=== PATIENT | female | born 1975 | race Caucasian/White ===

== ENCOUNTER → 2016-12-24 | Outpatient (CLI) | payer MEDICAID ==
[~2016-12-24] MED LIST: ALB0.5V; ALBUTEROL SULFATE; ALPR0.25 PO; ANAL2.5CR PR; ASMANEX; ASPI-587 PO; BUTA-234 PO; CEPH-38 PO; CEPH-507 PO; CMBV14.7IN IH; CYCL10TA9 PO; DICL75TA2 PO; FAMO-119 PO; HYDR1TAB PO; HYOS0.1234 PO; IPR14IN INH; IPRA0.2S18 IH; LEVE500T6 PO; LNS30CCR; METO5TAB2 PO; MOME0.244; NITR-65 PO; NITR100C3 PO; ONDA8TAB13 PO; OXYC-12; PNT40TEC PO; PREG25CA PO; PRO AIR; PROAIR; RT-COMBINH; SCR1T1 PO; SUCR1TAB36 PO; SULF1TAB38 PO; TCD12.5U PO; TRAM-21 PO; TRAM50TA2 PO; TRM50T PO; VITAMINE D; [UNRECOGNIZED DRUG - CODE] MC; [UNRECOGNIZED DRUG - OTHER]; [UNRECOGNIZED DRUG - OTHER]; [UNRECOGNIZED DRUG - REMARK]
== END ==
LOC: RAD 13:50
PROVIDERS: ATTEND Nurse Practitioner Family
DX: Z12.31 Encounter for screening mammogram for malignant neoplasm of breast (principal)
CPT/HCPCS: 77067

== ENCOUNTER → 2017-01-18 | Outpatient (CLI) | payer MEDICAID ==
[~2017-01-18] MED LIST changes: +AMIT50TA3 PO; +ARIP10TA17 PO; +CELE100C84 PO; +DOXY100C2 PO; +PANT40TA3 PO; +PRD10T PO; +PRD20T PO; +RT-ALBUINH IH; +TIOT18CA2 IH; +TOPI50TA13 PO
--- NOTE | 2017-01-18 17:29 | Diagnostic Imaging Report ---
PROCEDURE: MRI lumbar spine. TECHNIQUE: Multiplanar, multisequence MRI of the lumbar spine was performed without contrast. INDICATION: Low back pain with sciatica. COMPARISON: Lumbar spine MRI without contrast 08/15/2012. FINDINGS: There are five lumbar-type vertebral bodies presumed for the purposes of this report. Normal alignment. Vertebral body heights are maintained. Benign hemangioma in the L5 vertebral body is stable. No suspicious bone marrow signal. No abnormal signal in the conus which terminates at T12-L1. Normal morphology of the cauda equina. The visualized abdominal and pelvic contents are unremarkable. There is mild lower lumbar facet arthropathy bilaterally at L3 through S1. There are tiny broad-based disc bulges at L4-L5 and L5-S1. There is no substantial spinal canal, lateral recess, or neural foraminal narrowing throughout the lumbar spine. IMPRESSION: Mild spondylotic changes result in no neural impingement. No suspicious bone marrow signal. No significant change. Dictated by: Dictated on workstation # [id number]
== END ==
LOC: RAD 14:01
PROVIDERS: ATTEND Nurse Practitioner Family
DX: M54.41 Lumbago with sciatica, right side (principal)
CPT/HCPCS: 72148

== ENCOUNTER 2017-02-10 12:44 | Outpatient (RCR) | payer MEDICAID ==
[~2017-02-10 12:44] MED LIST changes: -AMIT50TA3 PO; -ARIP10TA17 PO; -CELE100C84 PO; -DOXY100C2 PO; -PANT40TA3 PO; -PRD10T PO; -PRD20T PO; -RT-ALBUINH IH; -TIOT18CA2 IH; -TOPI50TA13 PO
== END 2017-02-12 | disposition home or self-care (01) ==
PROVIDERS: ATTEND Nurse Practitioner Family
DX: M54.41 Lumbago with sciatica, right side (principal); G89.4 Chronic pain syndrome; M46.96 Unspecified inflammatory spondylopathy, lumbar region

== ENCOUNTER 2017-03-02 12:56 | Outpatient (RCR) | payer MEDICAID ==
[2017-03-31] MEDS ORDERED: PRD10T PO (07:56)
== END 2017-03-02 13:38 | disposition home or self-care (01) ==
PROVIDERS: ATTEND Nurse Practitioner Family
DX: M54.41 Lumbago with sciatica, right side (principal); G89.4 Chronic pain syndrome; M19.91 Primary osteoarthritis, unspecified site

== ENCOUNTER 2017-03-28 15:34 | Observation (INO) | payer MEDICAID ==
[~2017-03-28] VITALS: Ht 152.4 cm; Wt 90.8 kg
[2017-03-28] MEDS ORDERED: ONDANSETRON 4 MG/2 ML (SDV) Z0FRAN IVP PRN (16:00)
[2017-03-28] MEDS ORDERED: RT-ALBUINH IH (16:52)
[2017-03-28] MEDS ORDERED: ARIP10TA17 PO (16:52)
[2017-03-28] MEDS ORDERED: TIOT18CA2 IH (16:52)
[2017-03-28] MEDS ORDERED: CELE100C84 PO (16:52)
[2017-03-28] MEDS ORDERED: DOXY100C2 PO (16:52)
[2017-03-28] MEDS ORDERED: TOPI50TA13 PO (16:52)
[2017-03-28] MEDS ORDERED: AMIT50TA3 PO (16:52)
[2017-03-28] MEDS ORDERED: PANT40TA3 PO (16:52)
[2017-03-28] MEDS ORDERED: PRD20T PO (16:57)
[2017-03-28 16:59] VITALS: BP 117/76
[2017-03-28] MEDS: methylPREDNISolone 125 MG (Solu-MEDROL) VIAL IVP SCH ×2 (17:15→23:53)
--- OUTSIDE RECORDS SUMMARY | 2017-03-28 17:43 | XMS REPORT ---
Author Author MOOK GONZALES Organization [facility] [place] Address [address] [place] [address] Care Team Providers Care Video Game Designer Name Role Phone GONZALESMOOK Donald Unavailable PROBLEMS Type Condition ICD9-CM Code [id number] Code Onset Dates Condition Status SNOMED Code Problem Anxiety F41.9 Active 82054701 Problem Adjustment disorder with depressed mood F43.21 Active 93892972 Problem Post traumatic stress disorder F43.10 Active 88174825 Problem Chronic pain syndrome G89.4 Active 102928364 Problem Lumbago with sciatica, right side M54.41 Active 094873226 Problem Gastroesophageal reflux disease with esophagitis K21.0 Active 890303162 Problem 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 Active 14271046 Problem Arthritis M19.90 Active 2415257 Problem Mild intermittent asthma without complication J45.20 Active 579048777 Problem Spondylosis of lumbar spine M47.816 Active 676252562 Problem History of drug dependence/abuse F19.21 Active 4265856 Problem History of anxiety disorder Z86.59 Active 763903875 Problem Thrombocytosis D47.3 Active 6591274 Problem History of gestational diabetes Z86.32 Active 203976020 Problem Encounter for routine adult health examination with abnormal findings Z00.01 Active 427265960 Problem Depression with anxiety F41.8 Active 773871540 ALLERGIES No Information SOCIAL HISTORY Never Assessed PLAN OF CARE VITAL SIGNS MEDICATIONS Medication Instructions Dosage Frequency Start Date End Date Duration Status Spiriva HandiHaler 18 MCG Inhalation Once a day 1 capsule 24h September, 30 days Active RESULTS No Results PROCEDURES No Known procedures IMMUNIZATIONS No Known Immunizations MEDICAL (GENERAL) HISTORY Type Description Date Medical History COPD Medical History Asthma Medical History Depression Medical History Arthritis Medical History Anxiety Medical History PTSD Medical History Nerve damage (pt reports due to epidural during childbirth) Medical History History of gestational diabetes Medical History IBS Medical History 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
--- OUTSIDE RECORDS SUMMARY | 2017-03-28 17:43 | XMS REPORT | Clinical Summary ---
Author Author [facility] Organization [facility] Address Unknown Phone Unavailable Care Team Providers Care Retail Performance Coach Name Role Phone PCP Unavailable Source Comments Some departments are not documenting in the electronic medical record. If you do not see the information that you expected, contact Release of Information in the Health Information Management department at [phone] for further assistance in locating additional records.[facility] Allergies No Known Allergies Current Medications Prescription Sig. Disp. Refills Start End Date Status Date levETIRAcetam (KEPPRA) Take 500 mg by mouth Active 500 mg tablet twice daily. PREGABALIN (LYRICA PO) Take 40 mg by mouth at Active bedtime daily. albuterol (VENTOLIN HFA, Inhale 2 Puffs by mouth Active PROAIR HFA) 90 every 6 hours as needed. mcg/actuation inhaler ipratropium (ATROVENT Inhale 2 Puffs by mouth Active HFA) 17 mcg/actuation every 6 hours. inhaler OXYCODONE HCL (OXYCODONE Take by mouth every 4 Active PO) hours as needed. OMEPRAZOLE (PRILOSEC PO) Take by mouth daily. Active FLUOXETINE HCL (PROZAC Take by mouth daily. Active PO) metoclopramide HCl Take 2 Tabs by mouth 120 Tab 3 12/06/19 Active (REGLAN) 5 mg tablet before meals and at 13 bedtime. ondansetron (ZOFRAN ODT) Take 1 Tab by mouth every 20 Tab 3 12/06/19 Active 4 mg rapid dissolve 8 hours as needed for 13 tablet Nausea. nystatin (NYSTOP) 100,000 apply 2-3 times per day 1 Container 0 Active unit/g topical to affected areas 16 powderIndications: Intertrigo Active Problems Problem Noted Date Hypertrophy of breast 02/07/2013 Abdominal pain 2012 Nausea and vomiting 2012 Family History Relation Name Status Comments Social History Tobacco Use Types Packs/Day Years Used Date Current Every Day Smoker Cigarettes 0.5 Smokeless Tobacco: Never Used Tobacco Cessation: Ready to Quit: Yes; Counseling Given: Yes Alcohol Use Drinks/Week oz/Week Comments Yes occ Sex Assigned at Date Recorded Not on file Last Filed Vital Signs Vital Sign Reading Time Taken Blood Pressure 131/70 06/24/2015 10:12 PM WARM IN WORKER Pulse 89 06/24/2015 10:12 PM WARM IN WORKER Temperature 36.5 C (97.7 F) 06/24/2015 10:12 PM WARM IN WORKER Respiratory Rate 18 02/07/2013 12:59 PM CDT Oxygen Saturation 98% 06/25/2015 2:15 AM WARM IN WORKER Inhaled Oxygen - - Concentration Weight 90.7 kg (200 lb) 06/24/2015 10:12 PM WARM IN WORKER Height 152.4 cm (5') 02/07/2013 12:59 PM CDT Body Mass Index 39.06 06/24/2015 10:12 PM WARM IN WORKER Plan of Treatment Health Maintenance Due Date Last Done Comments PHYSICAL (COMPREHENSIVE) 09/27/1983 EXAM PERTUSSIS VACCINE 09/27/1987 TETANUS VACCINE 1993 CERVICAL CANCER SCREENING 2006 BREAST CANCER SCREENING 2016 INFLUENZA VACCINE 12/14/2016 Results Not on filefrom Last 3 Months
--- OUTSIDE RECORDS SUMMARY | 2017-03-28 17:44 | XMS REPORT ---
Author Author GONZALESMOOK Donald Organization [facility] Address [address] [place] [address] Care Team Providers Care Chick Grader Name Role Phone GONZALESMOOK Donald Unavailable PROBLEMS Type Condition ICD9-CM Code [id number] Code Onset Dates Condition Status SNOMED Code Problem Anxiety F41.9 Active 69775972 Problem Adjustment disorder with depressed mood F43.21 Active 85347113 Problem Post traumatic stress disorder F43.10 Active 89099466 Problem Chronic pain syndrome G89.4 Active 558425656 Problem Lumbago with sciatica, right side M54.41 Active 175375115 Problem Gastroesophageal reflux disease with esophagitis K21.0 Active 749103850 Problem 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 Active 86299103 Problem Arthritis M19.90 Active 6863068 Problem Mild intermittent asthma without complication J45.20 Active 600470737 Problem Spondylosis of lumbar spine M47.816 Active 808372405 Problem History of drug dependence/abuse F19.21 Active 6039719 Problem History of anxiety disorder Z86.59 Active 555337302 Problem Thrombocytosis D47.3 Active 3372186 Problem History of gestational diabetes Z86.32 Active 473048323 Problem Encounter for routine adult health examination with abnormal findings Z00.01 Active 681540208 Problem Depression with anxiety F41.8 Active 170461979 ALLERGIES No Information SOCIAL HISTORY Never Assessed PLAN OF CARE VITAL SIGNS MEDICATIONS Unknown Medications RESULTS Name Result Date Reference Range THYROID ANALYZER 2016-09-15 TSH 2.710 0.450-4.500 A1C 2016-09-15 Hemoglobin A1c 5.5 4.8-5.6 CBC 2016-09-15 WBC 7.3 3.4-10.8 RBC 4.85 3.77-5.28 Hemoglobin 13.1 11.1-15.9 Hematocrit 40.6 34.0-46.6 MCV 84 79-97 MCH 27.0 26.6-33.0 MCHC 32.3 31.5-35.7 RDW 15.9 12.3-15.4 Platelets 420 150-379 Neutrophils 48 Lymphs 41 Monocytes 8 Eos 3 Basos 0 Neutrophils (Absolute) 3.4 1.4-7.0 Lymphs (Absolute) 3.0 0.7-3.1 Monocytes(Absolute) 0.6 0.1-0.9 Eos (Absolute) 0.3 0.0-0.4 Baso (Absolute) 0.0 0.0-0.2 Immature Granulocytes 0 Immature Grans (Abs) 0.0 0.0-0.1 LIPID PANEL 2016-09-15 Cholesterol, Total 198 100-199 Triglycerides 140 0-149 HDL Cholesterol 54 >39 VLDL Cholesterol Arron 28 5-40 LDL Cholesterol Calc 116 0-99 CMP 2016-09-15 Glucose, Serum 86 65-99 BUN 10 6-20 Creatinine, Serum 0.73 0.57-1.00 eGFR If NonAfricn Am 104 >59 eGFR If Africn Am 120 >59 BUN/Creatinine Ratio 14 9-23 Sodium, Serum 141 134-144 Potassium, Serum 4.1 3.5-5.2 Chloride, Serum 100 96-106 Carbon Dioxide, Total 25 18-29 Calcium, Serum 9.4 8.7-10.2 Protein, Total, Serum 7.1 6.0-8.5 Albumin, Serum 4.2 3.5-5.5 Globulin, Total 2.9 1.5-4.5 A/G Ratio 1.4 1.2-2.2 Bilirubin, Total 0.2 0.0-1.2 Alkaline Phosphatase, S 66 39-117 AST (SGOT) 17 0-40 ALT (SGPT) 10 0-32 PROCEDURES Procedure Date Ordered Result Body Site LAB NOT BILLED BY [facility] September 15, 2016 GLYCATED HEMOGLOBIN TEST September 15, 2016 VENIPUNCT, ROUTINE* September 15, 2016 IMMUNIZATIONS No Known Immunizations MEDICAL (GENERAL) HISTORY [...] surgery Hospitalization History mental health (suicidal ideation) [facility] 2016 Hospitalization History Overdose on prescription medicine/Suicide Attempt Hospitalization History [facility]
--- OUTSIDE RECORDS SUMMARY | 2017-03-28 17:44 | XMS REPORT ---
Author Author GONZALESMOOK Donald Organization [facility] Address [address] [place] [address] Care Team Providers Care Warehouse Shipping Receiving Clerk Name Role Phone GONZALESMOOK Donald Unavailable PROBLEMS Type Condition ICD9-CM Code [id number] Code Onset Dates Condition Status SNOMED Code Problem Anxiety F41.9 Active 88642250 Problem Adjustment disorder with depressed mood F43.21 Active 64408011 Problem Post traumatic stress disorder F43.10 Active 37744527 Problem Chronic pain syndrome G89.4 Active 680651866 Problem Lumbago with sciatica, right side M54.41 Active 768944704 Problem Gastroesophageal reflux disease with esophagitis K21.0 Active 754845068 Problem 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 Active 13943675 Problem Arthritis M19.90 Active 4644211 Problem Mild intermittent asthma without complication J45.20 Active 342026393 Problem Spondylosis of lumbar spine M47.816 Active 339884513 Problem History of drug dependence/abuse F19.21 Active 4982208 Problem History of anxiety disorder Z86.59 Active 062012532 Problem Thrombocytosis D47.3 Active 7238099 Problem History of gestational diabetes Z86.32 Active 124594838 Problem Encounter for routine adult health examination with abnormal findings Z00.01 Active 917402189 Problem Depression with anxiety F41.8 Active 750026132 ALLERGIES No Information SOCIAL HISTORY Never Assessed PLAN OF CARE VITAL SIGNS MEDICATIONS Medication Instructions Dosage Frequency Start Date End Date Duration Status Protonix 40 mg Orally Once a day 1 tablet 24h 30 days Active Celebrex 100 mg Orally Once a day 1 capsule with food 24h Oct, 30 days Active Atrovent HFA 17 MCG/ACT Inhalation Four times a day 2 puffs 6h Active ProAir HFA 108 (90 Base) MCG/ACT Inhalation every 4 hrs 2 puffs as needed 4h Active RESULTS No Results PROCEDURES No Known [...] surgery Hospitalization History mental health (suicidal ideation) [facility] 2016 Hospitalization History Overdose on prescription medicine/Suicide Attempt Hospitalization History [facility]
--- OUTSIDE RECORDS SUMMARY | 2017-03-28 17:44 | XMS REPORT ---
Author Author DESTINEY NOLAN Organization [facility] Address [address] [place] [address] Care Team Providers Care Edge Inker Uppers Name Role Phone DESTINEY NOLAN Unavailable PROBLEMS Type Condition ICD9-CM Code [id number] Code Onset Dates Condition Status SNOMED Code Problem Anxiety F41.9 Active 34265280 Problem Adjustment disorder with depressed mood F43.21 Active 34053913 Problem Post traumatic stress disorder F43.10 Active 87605668 Problem Chronic pain syndrome G89.4 Active 384216533 Problem Lumbago with sciatica, right side M54.41 Active 942814244 Problem Gastroesophageal reflux disease with esophagitis K21.0 Active 369547695 Problem 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 Active 54543901 Problem Arthritis M19.90 Active 9245656 Problem Mild intermittent asthma without complication J45.20 Active 139995360 Problem Spondylosis of lumbar spine M47.816 Active 519815460 Problem History of drug dependence/abuse F19.21 Active 1490769 Problem History of anxiety disorder Z86.59 Active 204894665 Problem Thrombocytosis D47.3 Active 6998949 Problem History of gestational diabetes Z86.32 Active 689655785 Problem Encounter for routine adult health examination with abnormal findings Z00.01 Active 702067430 Problem Depression with anxiety F41.8 Active 739985516 ALLERGIES No Known Allergies SOCIAL HISTORY Never Assessed PLAN OF CARE Activity Details Follow Up prn Reason: VITAL SIGNS Height 61.5 in 2016-10-10 Weight 184.2 lbs 2016-10-10 Temperature 98.5 degrees Fahrenheit 2016-10-10 Heart Rate 84 bpm 2016-10-10 Respiratory Rate 20 2016-10-10 BMI 34.24 kg/m2 2016-10-10 Blood pressure systolic 114 mmHg 2016-10-10 Blood pressure diastolic 78 mmHg 2016-10-10 MEDICATIONS Medication Instructions Dosage Frequency Start Date End Date Duration Status Spiriva HandiHaler 18 MCG Inhalation Once a day 1 capsule 24h September, 30 days Active Topamax 50 MG Orally Twice a day 1 tablet 12h 15 Sep, 2016 30 day(s) Active Celebrex 100 mg Orally Once a day 1 capsule with food 24h Oct, 30 days Active Protonix 40 mg Orally Once a day 1 tablet 24h 30 days Active ProAir HFA 108 (90 Base) MCG/ACT Inhalation every 4 hrs 2 puffs as needed 4h Active Diflucan 100 mg Orally every other day 1 tablet September, Oct, 10 days Active Abilify 5 mg Orally Once a day 1 tablet 24h September, 30 day(s) Active RESULTS No Results PROCEDURES No Known [...] surgery Hospitalization History mental health (suicidal ideation) [facility] 2016 Hospitalization History Overdose on prescription medicine/Suicide Attempt Hospitalization History [facility]
--- OUTSIDE RECORDS SUMMARY | 2017-03-28 17:44 | XMS REPORT ---
Author Author MOOK GONZALES Organization [facility] Address [address] [place] [address] Care Team Providers Care Boiler House Inspector Name Role Phone GONZALESMOOK Donald Unavailable PROBLEMS Type Condition ICD9-CM Code [id number] Code Onset Dates Condition Status SNOMED Code Problem Anxiety F41.9 Active 68662235 Problem Adjustment disorder with depressed mood F43.21 Active 62190279 Problem Post traumatic stress disorder F43.10 Active 08452342 Problem Chronic pain syndrome G89.4 Active 582530248 Problem Lumbago with sciatica, right side M54.41 Active 726559350 Problem Gastroesophageal reflux disease with esophagitis K21.0 Active 590481088 Problem 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 Active 66587476 Problem Arthritis M19.90 Active 9566906 Problem Mild intermittent asthma without complication J45.20 Active 652764030 Problem Spondylosis of lumbar spine M47.816 Active 865146212 Problem History of drug dependence/abuse F19.21 Active 2093676 Problem History of anxiety disorder Z86.59 Active 993416833 Problem Thrombocytosis D47.3 Active 6236142 Problem History of gestational diabetes Z86.32 Active 371918462 Problem Encounter for routine adult health examination with abnormal findings Z00.01 Active 338137682 Problem Depression with anxiety F41.8 Active 400320487 ALLERGIES No Information SOCIAL HISTORY Never Assessed PLAN OF CARE VITAL SIGNS MEDICATIONS Medication Instructions Dosage Frequency Start Date End Date Duration Status Topamax 50 MG Orally Twice a day 1 tablet 12h 15 Sep, 2016 30 day(s) Active RESULTS No Results PROCEDURES [...] surgery Hospitalization History mental health (suicidal ideation) [facility] 2016 Hospitalization History Overdose on prescription medicine/Suicide Attempt Hospitalization History [facility]
--- OUTSIDE RECORDS SUMMARY | 2017-03-28 17:44 | XMS REPORT ---
Author Author MARGRET Chahal Organization [facility] Address [address] [place] [address] Care Team Providers Care Foreign Clerk Name Role Phone georgesMARGRET BRIGHT Unavailable PROBLEMS Type Condition ICD9-CM Code DCI61-CG Code Onset Dates Condition Status SNOMED Code Problem Anxiety F41.9 Active 54216354 Problem Adjustment disorder with depressed mood F43.21 Active 40206643 Problem Post traumatic stress disorder F43.10 Active 20587049 Problem Chronic pain syndrome G89.4 Active 491606670 Problem Lumbago with sciatica, right side M54.41 Active 345972037 Problem Gastroesophageal reflux disease with esophagitis K21.0 Active 868692036 Problem 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 Active 11203319 Problem Arthritis M19.90 Active 0646062 Problem Mild intermittent asthma without complication J45.20 Active 940344744 Problem Spondylosis of lumbar spine M47.816 Active 574004650 Problem History of drug dependence/abuse F19.21 Active 3437164 Problem History of anxiety disorder Z86.59 Active 651743561 Problem Thrombocytosis D47.3 Active 4691547 Problem History of gestational diabetes Z86.32 Active 564045755 Problem Encounter for routine adult health examination with abnormal findings Z00.01 Active 349677528 Problem Depression with anxiety F41.8 Active 927073628 ALLERGIES No Information SOCIAL HISTORY Never Assessed PLAN OF CARE VITAL SIGNS MEDICATIONS Unknown Medications RESULTS No Results PROCEDURES No Known procedures [...] surgery Hospitalization History mental health (suicidal ideation) [facility] 2016 Hospitalization History Overdose on prescription medicine/Suicide Attempt Hospitalization History [facility]
--- OUTSIDE RECORDS SUMMARY | 2017-03-28 17:45 | XMS REPORT ---
Author Author DAVIS DOWLING [facility] Address [address] [place] [address] Care Team Providers Care Reel Fed Printer Name Role Phone JOSEYDAVIS Unavailable PROBLEMS Type Condition ICD9-CM Code MUD19-PA Code Onset Dates Condition Status SNOMED Code Problem Anxiety F41.9 Active 40994498 Problem Adjustment disorder with depressed mood F43.21 Active 54930442 Problem Post traumatic stress disorder F43.10 Active 52550294 Problem Chronic pain syndrome G89.4 Active 053329483 Problem Lumbago with sciatica, right side M54.41 Active 246528819 Problem Gastroesophageal reflux disease with esophagitis K21.0 Active 479749722 Problem 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 Active 74079223 Problem Arthritis M19.90 Active 8567025 Problem Mild intermittent asthma without complication J45.20 Active 364308898 Problem Spondylosis of lumbar spine M47.816 Active 110523092 Problem History of drug dependence/abuse F19.21 Active 5224571 Problem History of anxiety disorder Z86.59 Active 362509893 Problem Thrombocytosis D47.3 Active 3487994 Problem History of gestational diabetes Z86.32 Active 091969869 Problem Encounter for routine adult health examination with abnormal findings Z00.01 Active 068567622 Problem Depression with anxiety F41.8 Active 500519453 ALLERGIES No Information SOCIAL HISTORY Never Assessed PLAN OF CARE Activity Details Follow Up 3 Weeks Reason:PTSD, anxiety, substance abuse/dependance VITAL SIGNS MEDICATIONS Unknown Medications RESULTS No Results PROCEDURES Procedure Date Ordered Result Body Site Psychotherapy, patient &/family, 30 minutes, established patient September 23, 2016 IMMUNIZATIONS No Known Immunizations MEDICAL (GENERAL) [...] surgery Hospitalization History mental health (suicidal ideation) [facility] 2016 Hospitalization History Overdose on prescription medicine/Suicide Attempt Hospitalization History [facility]
--- OUTSIDE RECORDS SUMMARY | 2017-03-28 17:45 | XMS REPORT ---
Author Author DAVIS DOWLING [facility] Address [address] [place] [address] Care Team Providers Care Starch And Prosize Mixer Name Role Phone JOSEYDAVIS Unavailable PROBLEMS Type Condition ICD9-CM Code HUQ83-[id number] Code Onset Dates Condition Status SNOMED Code Problem Anxiety F41.9 Active 95879092 Problem Adjustment disorder with depressed mood F43.21 Active 41797679 Problem Post traumatic stress disorder F43.10 Active 08196247 Problem Chronic pain syndrome G89.4 Active 999509606 Problem Lumbago with sciatica, right side M54.41 Active 219964035 Problem Gastroesophageal reflux disease with esophagitis K21.0 Active 855875235 Problem 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 Active 44141435 Problem Arthritis M19.90 Active 9618679 Problem Mild intermittent asthma without complication J45.20 Active 798759658 Problem Spondylosis of lumbar spine M47.816 Active 635195633 Problem History of drug dependence/abuse F19.21 Active 2905771 Problem History of anxiety disorder Z86.59 Active 134444506 Problem Thrombocytosis D47.3 Active 7786506 Problem History of gestational diabetes Z86.32 Active 961802693 Problem Encounter for routine adult health examination with abnormal findings Z00.01 Active 662054201 Problem Depression with anxiety F41.8 Active 855282174 ALLERGIES No Information SOCIAL HISTORY Never Assessed PLAN OF CARE Activity Details Follow Up 2 Weeks Reason:Anxiety, PTSD VITAL SIGNS MEDICATIONS Unknown Medications RESULTS No Results PROCEDURES Procedure Date Ordered Result Body Site Psychotherapy, patient &/family, 30 minutes, established patient October 08, 2016 IMMUNIZATIONS No Known Immunizations MEDICAL (GENERAL) [...] surgery Hospitalization History mental health (suicidal ideation) [facility] 2016 Hospitalization History Overdose on prescription medicine/Suicide Attempt Hospitalization History [facility]
[2017-03-28 17:58] LABS: BASOPHILS % (AUTO) 0 % (0-10); EOSINOPHILS % (AUTO) 0 % (0-10); LYMPHOCYTES # (AUTO) 2.5 X 10^3 (1.0-4.0); LYMPHOCYTES % (AUTO) 16 % (12-44); MEAN CORPUSCULAR HEMOGLOBIN 28 PG (25-34); MEAN CORPUSCULAR HGB CONC 33 G/DL (32-36); MEAN CORPUSCULAR VOLUME 85 FL (80-99); MEAN PLATELET VOLUME 9.7 FL (7.4-10.4); MONOCYTES # (AUTO) 1.1 X 10^3 (0.0-1.0); MONOCYTES % (AUTO) 7 % (0-12); NEUTROPHILS % (AUTO) 77 % (42-75); PLATELET COUNT 447 10^3/uL (130-400); RED BLOOD COUNT 4.15 10^6/uL (4.35-5.85); RED CELL DISTRIBUTION WIDTH 16.1 % (10.0-14.5); WHITE BLOOD COUNT 15.6 10^3/uL (4.3-11.0)
[2017-03-28 18:15] LABS: CARBON DIOXIDE 23 MMOL/L (21-32); CHLORIDE 108 MMOL/L (98-107); POTASSIUM 3.8 MMOL/L (3.6-5.0); SODIUM 141 MMOL/L (135-145)
[2017-03-28 18:16] LABS: ALANINE AMINOTRANSFERASE 35 U/L (0-55); ALBUMIN 3.9 GM/DL (3.2-4.5); ANION GAP 10 MMOL/L (5-14); ASPARTATE AMINO TRANSFERASE 27 U/L (5-34); BILIRUBIN,TOTAL 0.2 MG/DL (0.1-1.0); BLOOD UREA NITROGEN 28 MG/DL (7-18); BUN/CREATININE RATIO 30; CALCIUM 9.4 MG/DL (8.5-10.1); CREATININE SERUM 0.94 MG/DL (0.60-1.30); GFR ESTIMATED > 60; GLUCOSE 102 MG/DL (70-105); TOTAL PROTEIN 7.4 GM/DL (6.4-8.2)
[2017-03-28 18:19] LABS: BAND NEUTROPHILS 1 %; BASOPHILS % (MANUAL) 0 %; EOSINOPHILS % (MANUAL) 0 %; LYMPHOCYTES % (MANUAL) 21 %; NEUTROPHILS % (MANUAL) 76 %
--- NOTE | 2017-03-28 18:38 | Diagnostic Imaging Report ---
CHEST PA/LAT (2 VIEW) Indication: Wheezing Comparison: 10/18/2014 Findings: No focal pneumonic consolidation, pleural effusion or pneumothorax. Normal heart size and pulmonary vasculature. Impression: No acute cardiopulmonary process. Dictated by: Dictated on workstation # [id number]
[2017-03-28 18:57] VITALS: BP 117/76
[2017-03-28] MEDS ORDERED: RT-ALBUTEROL SULF 2.5 MG/3 ML PRE-MIX VIAL IH PRN (19:15)
[2017-03-28] MEDS ORDERED: NON-FORMULARY MEDICATION 1 EA EA (Topiramate 50 MG) PO SCH (21:00)
[2017-03-28] MEDS: AMITRIPTYLINE 50 MG (ELAVIL) TAB PO SCH (21:39)
[2017-03-28] MEDS: RT-ALBUTEROL SULF 2.5 MG/3 ML PRE-MIX VIAL IH SCH (22:04)
[2017-03-29 00:09] VITALS: BP 104/66
[2017-03-29] MEDS: RT-ALBUTEROL SULF 2.5 MG/3 ML PRE-MIX VIAL IH SCH ×6 (02:25→22:14)
[2017-03-29 04:00] VITALS: BP 127/61
[2017-03-29] MEDS: methylPREDNISolone 125 MG (Solu-MEDROL) VIAL IVP SCH ×3 (06:14→17:01)
[2017-03-29] MEDS: UMECLIDINIUM BROMIDE (INCRUSE ELLIPTA) 7'S IH SCH (06:38)
[2017-03-29 06:50] LABS: BASOPHILS % (AUTO) 0 % (0-10); EOSINOPHILS % (AUTO) 0 % (0-10); LYMPHOCYTES # (AUTO) 1.2 X 10^3 (1.0-4.0); LYMPHOCYTES % (AUTO) 10 % (12-44); MEAN CORPUSCULAR HEMOGLOBIN 28 PG (25-34); MEAN CORPUSCULAR HGB CONC 33 G/DL (32-36); MEAN CORPUSCULAR VOLUME 84 FL (80-99); MEAN PLATELET VOLUME 9.8 FL (7.4-10.4); MONOCYTES # (AUTO) 0.3 X 10^3 (0.0-1.0); MONOCYTES % (AUTO) 3 % (0-12); NEUTROPHILS # (AUTO) 10.3 X 10^3 (1.8-7.8); NEUTROPHILS % (AUTO) 87 % (42-75); PLATELET COUNT 464 10^3/uL (130-400); RED BLOOD COUNT 3.95 10^6/uL (4.35-5.85); RED CELL DISTRIBUTION WIDTH 16.2 % (10.0-14.5); WHITE BLOOD COUNT 11.8 10^3/uL (4.3-11.0)
[2017-03-29 08:03] VITALS: BP 109/68
[2017-03-29] MEDS: PANTOPRAZOLE 40 MG (PROTONIX) TAB PO SCH (08:14)
[2017-03-29] MEDS: DOCUSATE SODIUM 100 MG (COLACE) CAP PO PRN (08:14)
[2017-03-29] MEDS: ARIPIPRAZOLE 10 MG (ABILIFY) TAB PO SCH (08:14)
[2017-03-29] MEDS: toPIRamate 25 MG (TOPAMAX) TAB PO SCH ×2 (08:15→21:12)
[2017-03-29] MEDS: CELECOXIB 100 MG (CeleBREX) CAP PO SCH (08:15)
[2017-03-29 12:18] VITALS: BP 113/74
--- NOTE | 2017-03-29 14:29 | History & Physicial (CHS) ---
HPI History of Present Illness: 41 yo female with history of COPD/asthma was sent to hospital from clinic due to desaturations and wheezing in spite of outpatient treatment. Zara states about a week ago her daughter got sick and then Zara got sick with on and off fever, nasal congestion, sore throat and productive cough and voice loss. She has had increasing shortness of breath in spite of using inhaler and was short of breath even trying to roll over in bed. Source: patient Date seen by provider: Mar 29, 2017 Time Seen by Provider: 10:15 Attending Physician Elia Hewitt MD PCP Anny Alicia DO Consult Date of Admission Mar 28, 2017 at 4:15 pm Home Medications Home Medications Reviewed patient Home Medication Reconciliation Form Allergies Coded Allergies: No Known Drug Allergies (Unverified , 09/07/08) MHQ-Jmsaze-Xbkims Hx Patient Social History Alcohol Use: Denies Use Recreational Drug Use: No (HX OF METH USES QUIT ONE YR AGO) Smoking Status: Current Everyday Smoker Type Used: Cigars Recent Foreign Travel: No Contact w/other who traveled: No Recent Hopitalizations: No Recent Infectious Disease Expo: No Physical Abuse Screen: No Sexual Abuse: No Immunizations Up To Date Tetanus Booster (TDap): Unknown Date of Influenza Vaccine: Jan 14, 2017 Past Medical History PMHx: Asthma/COPD GERD Anxiety Arthritis Substance abuse PSurgHx: BTL Ovarian cyst removal C section Cholecystectomy Appendectomy Hiatal hernia repair Family Medical History Significant Family History: Heart Disease, Other Conditions/Hx (Father with Parkinson disease) Review of Systems (CHC) Constitutional: fever, malaise EENTM: nose congestion Respiratory: cough, short of breath Cardiovascular: No chest pain Gastrointestinal: No abdominal pain, No diarrhea, No vomiting Genitourinary: no symptoms reported Musculoskeletal: back pain Psychiatric/Neurological: No Symptoms Reported Reviewed Test Results Reviewed Test Results Lab Laboratory Tests Test 03/28/17 17:52 03/29/17 06:06 Range/Units White Blood Count 15.6 H 11.8 H 4.3-11.0 10^3/uL Red Blood Count 4.15 L 3.95 L 4.35-5.85 10^6/uL Hemoglobin 11.5 11.0 L 11.5-16.0 G/DL Hematocrit 35 33 L 35-52 % Mean Corpuscular Volume 85 84 80-99 FL Mean Corpuscular Hemoglobin 28 28 25-34 PG Mean Corpuscular Hemoglobin Concent 33 33 32-36 G/DL Red Cell Distribution Width 16.1 H 16.2 H 10.0-14.5 % Platelet Count 447 H 464 H 130-400 10^3/uL Mean Platelet Volume 9.7 9.8 7.4-10.4 FL Neutrophils (%) (Auto) 77 H 87 H 42-75 % Lymphocytes (%) (Auto) 16 10 L 12-44 % Monocytes (%) (Auto) 7 3 0-12 % Eosinophils (%) (Auto) 0 0 0-10 % Basophils (%) (Auto) 0 0 0-10 % Neutrophils # (Auto) 12.0 H 10.3 H 1.8-7.8 X 10^3 Lymphocytes # (Auto) 2.5 1.2 1.0-4.0 X 10^3 Monocytes # (Auto) 1.1 H 0.3 0.0-1.0 X 10^3 Eosinophils # (Auto) 0.0 0.0 0.0-0.3 10^3/uL Basophils # (Auto) 0.0 0.0 0.0-0.1 10^3/uL Neutrophils % (Manual) 76 % Lymphocytes % (Manual) 21 % Monocytes % (Manual) 2 % Eosinophils % (Manual) 0 % Basophils % (Manual) 0 % Band Neutrophils 1 % Blood Morphology Comment NORMAL Sodium Level 141 135-145 MMOL/L Potassium Level 3.8 3.6-5.0 MMOL/L Chloride Level 108 H 98-107 MMOL/L Carbon Dioxide Level 23 21-32 MMOL/L Anion Gap 10 5-14 MMOL/L Blood Urea Nitrogen 28 H 7-18 MG/DL Creatinine 0.94 0.60-1.30 MG/DL Estimat Glomerular Filtration Rate > 60 BUN/Creatinine Ratio 30 Glucose Level 102 70-105 MG/DL Calcium Level 9.4 8.5-10.1 MG/DL Total Bilirubin 0.2 0.1-1.0 MG/DL Aspartate Amino Transf (AST/SGOT) 27 5-34 U/L Alanine Aminotransferase (ALT/SGPT) 35 0-55 U/L Alkaline Phosphatase 85 40-136 U/L Total Protein 7.4 6.4-8.2 GM/DL Albumin 3.9 3.2-4.5 GM/DL Radiology CXR 03/28/17: No acute cardiopulmonary process Physical Exam-(CHC) Physical Exam Vital Signs VS - Last 72 Hours, by Label 03/28/17 03/28/17 03/28/17 03/28/17 16:59 17:33 18:57 19:07 Temp 97.5 Pulse 75 71 Resp 22 B/P (MAP) 117/76 Pulse Ox 95 95 92 92 O2 Delivery Room Air Room Air Room Air FiO2 21 03/28/17 03/28/17 03/29/17 03/29/17 21:00 22:04 00:09 02:25 Temp 99.1 Pulse 73 Resp 18 B/P (MAP) 104/66 Pulse Ox 88 93 92 O2 Delivery Nasal Cannula Room Air Nasal Cannula Nasal Cannula O2 Flow Rate 2.00 2.50 2.50 03/29/17 03/29/17 03/29/17 03/29/17 04:00 06:39 08:03 09:00 Temp 97.4 96.8 Pulse 77 75 Resp 20 18 B/P (MAP) 127/61 109/68 Pulse Ox 98 93 96 O2 Delivery Nasal Cannula Nasal Cannula Nasal Cannula Nasal Cannula O2 Flow Rate 2.00 2.50 2.50 2.00 03/29/17 03/29/17 03/29/17 09:58 12:18 14:12 Temp 98.4 Pulse 83 Resp 22 B/P (MAP) 113/74 Pulse Ox 94 95 93 O2 Delivery Nasal Cannula Nasal Cannula Nasal Cannula O2 Flow Rate 2.50 2.50 2.50 Capillary Refill : General Appearance: no apparent distress HEENT: other (initially with whispering voice, began speaking in nearly normal voice by end of interview) Respiratory: decreased breath sounds, No rales, No rhonchi Cardiovascular: regular rate, rhythm, no murmur Gastrointestinal: normal bowel sounds, non tender, soft Extremities: no pedal edema Neurologic/Psychiatric: alert, normal mood/affect Skin: normal color, warm/dry Clinical Quality Measures DVT/VTE Risk/Contraindication: Risk Factor Score Per Nursin RFS Level Per Nursing on Admit: 3=High Copy Copies To 1: Biju Carrero APRN Assessment/Plan Assessment/Plan Admission Dx COPD exacerbation Viral upper respiratory infection Plan COPD exacerbation -CXR without evidence of pneumonia and suspect viral infection as source of worsening given her laryngitis, nasal congestion and sore throat. Leukocytosis and thrombocytosis present but afebrile. -IV solumedrol, RT MAT procol, wean oxygen as tolerated, change to oral steroids tomorrow -Encouraged smoking cessation Viral URI - supportive care DVT ppx- SCDs, enoxaparin ELIA HEWITT MD Mar 29, 2017 2:29 pm
[2017-03-29 16:00] VITALS: BP 116/55
[2017-03-29] MEDS: ENOXAPARIN 40 MG/0.4 ML (LOVENOX) SYR SC SCH (17:01)
[2017-03-29 19:57] VITALS: BP 118/58
[2017-03-29] MEDS: AMITRIPTYLINE 50 MG (ELAVIL) TAB PO SCH (21:11)
[2017-03-30] VITALS (7 sets, daily range): BP systolic 108–132; BP diastolic 56–70
[2017-03-30] MEDS: methylPREDNISolone 125 MG (Solu-MEDROL) VIAL IVP SCH ×3 (00:53→11:02)
[2017-03-30] MEDS: RT-ALBUTEROL SULF 2.5 MG/3 ML PRE-MIX VIAL IH SCH ×6 (02:26→22:35)
[2017-03-30 06:48] LABS: BASOPHILS % (AUTO) 0 % (0-10); EOSINOPHILS % (AUTO) 0 % (0-10); LYMPHOCYTES # (AUTO) 1.3 X 10^3 (1.0-4.0); LYMPHOCYTES % (AUTO) 7 % (12-44); MEAN CORPUSCULAR HEMOGLOBIN 27 PG (25-34); MEAN CORPUSCULAR HGB CONC 32 G/DL (32-36); MEAN CORPUSCULAR VOLUME 85 FL (80-99); MEAN PLATELET VOLUME 10.1 FL (7.4-10.4); MONOCYTES # (AUTO) 0.9 X 10^3 (0.0-1.0); MONOCYTES % (AUTO) 5 % (0-12); NEUTROPHILS % (AUTO) 88 % (42-75); PLATELET COUNT 435 10^3/uL (130-400); RED BLOOD COUNT 3.93 10^6/uL (4.35-5.85); RED CELL DISTRIBUTION WIDTH 16.3 % (10.0-14.5); WHITE BLOOD COUNT 17.1 10^3/uL (4.3-11.0)
[2017-03-30] MEDS: UMECLIDINIUM BROMIDE (INCRUSE ELLIPTA) 7'S IH SCH (06:48)
[2017-03-30] MEDS: CELECOXIB 100 MG (CeleBREX) CAP PO SCH (08:35)
[2017-03-30] MEDS: PANTOPRAZOLE 40 MG (PROTONIX) TAB PO SCH (08:35)
[2017-03-30] MEDS: DOCUSATE SODIUM 100 MG (COLACE) CAP PO PRN ×2 (08:35→20:46)
[2017-03-30] MEDS: ARIPIPRAZOLE 10 MG (ABILIFY) TAB PO SCH (08:35)
[2017-03-30] MEDS: toPIRamate 25 MG (TOPAMAX) TAB PO SCH ×2 (08:35→20:42)
--- NOTE | 2017-03-30 14:41 | Progress Note (SOAP) ---
Subjective Subjective/Events-last exam Afebrile, no acute events. She is sitting up in chair, but states she is still getting short of breath with activity. Still using 2.5 lpm supplemental oxygen. She is speaking in a whispering voice, but nurse reports at times she has normal voice as well. Review of Systems Date Seen by Provider: Mar 30, 2017 Time Seen by Provider: 10:58 Objective Exam Last Set of Vital Signs Vital Signs Date Time Temp Pulse Resp B/P (MAP) Pulse Ox O2 Delivery O2 Flow Rate FiO2 03/30/17 12:00 96.8 83 20 116/70 97 Nasal Cannula 2.50 03/28/17 18:57 21 Capillary Refill : I&O Intake and Output 03/31/17 00:00 Intake Total 100 ml Output Total 350 ml Balance -250 ml Intake Oral 100 ml Output Urine Total 350 ml General: Alert, No Acute Distress Lungs: Normal Air Movement, Other (ronchi at bases) Psych/Mental Status: Mental Status NL Results/Procedures Lab Laboratory Tests 03/30/17 05:25: White Blood Count 17.1H, Red Blood Count 3.93L, Hemoglobin 10.7L, Hematocrit 33L , Mean Corpuscular Volume 85, Mean Corpuscular Hemoglobin 27, Mean Corpuscular Hemoglobin Concent 32, Red Cell Distribution Width 16.3H, Platelet Count 435H, Mean Platelet Volume 10.1, Neutrophils (%) (Auto) 88H, Lymphocytes (%) (Auto) 7L , Monocytes (%) (Auto) 5, Eosinophils (%) (Auto) 0, Basophils (%) (Auto) 0, Neutrophils # (Auto) 15.0H, Lymphocytes # (Auto) 1.3, Monocytes # (Auto) 0.9, Eosinophils # (Auto) 0.0, Basophils # (Auto) 0.0 Radiology CXR 03/28/17: No acute cardiopulmonary process Assessment/Plan Assessment/Plan Plan COPD exacerbation -CXR without evidence of pneumonia and suspect viral infection as source of worsening given her laryngitis, nasal congestion and sore throat. Leukocytosis and thrombocytosis present but afebrile. -IV solumedrol, RT MAT procol, wean oxygen as tolerated, change to oral steroids tomorrow -Encouraged smoking cessation 03/30- change to PO prednisone taper, wean oxygen Viral URI - supportive care DVT ppx- SCDs, enoxaparin Clinical Quality Measures DVT/VTE Risk/Contraindication: Risk Factor Score Per Nursin RFS Level Per Nursing on Admit: 3=High ELIA CASTLE MD Mar 30, 2017 14:41
[2017-03-30] MEDS: ENOXAPARIN 40 MG/0.4 ML (LOVENOX) SYR SC SCH (15:26)
[2017-03-30] MEDS: predniSONE 10 MG TAB PO SCH (15:26)
[2017-03-30] MEDS: AMITRIPTYLINE 50 MG (ELAVIL) TAB PO SCH (20:42)
[2017-03-31] MEDS: RT-ALBUTEROL SULF 2.5 MG/3 ML PRE-MIX VIAL IH SCH ×2 (02:44→07:02)
[2017-03-31 03:57] VITALS: BP 104/68
[2017-03-31 03:58] VITALS: BP 146/95
[2017-03-31] MEDS: UMECLIDINIUM BROMIDE (INCRUSE ELLIPTA) 7'S IH SCH (07:02)
[2017-03-31 07:14] LABS: BASOPHILS % (AUTO) 0 % (0-10); EOSINOPHILS % (AUTO) 0 % (0-10); LYMPHOCYTES # (AUTO) 2.8 X 10^3 (1.0-4.0); LYMPHOCYTES % (AUTO) 16 % (12-44); MEAN CORPUSCULAR HEMOGLOBIN 28 PG (25-34); MEAN CORPUSCULAR HGB CONC 33 G/DL (32-36); MEAN CORPUSCULAR VOLUME 85 FL (80-99); MEAN PLATELET VOLUME 9.8 FL (7.4-10.4); MONOCYTES # (AUTO) 1.3 X 10^3 (0.0-1.0); MONOCYTES % (AUTO) 7 % (0-12); NEUTROPHILS # (AUTO) 13.8 X 10^3 (1.8-7.8); NEUTROPHILS % (AUTO) 77 % (42-75); PLATELET COUNT 444 10^3/uL (130-400); RED BLOOD COUNT 4.05 10^6/uL (4.35-5.85); RED CELL DISTRIBUTION WIDTH 16.6 % (10.0-14.5); WHITE BLOOD COUNT 17.9 10^3/uL (4.3-11.0)
[2017-03-31 07:52] LABS: LYMPHOCYTES % (MANUAL) 19 %; NEUTROPHILS % (MANUAL) 72 %
[2017-03-31] MEDS: toPIRamate 25 MG (TOPAMAX) TAB PO SCH (07:56)
[2017-03-31] MEDS ORDERED: PRD10T PO (07:56)
[2017-03-31] MEDS: PANTOPRAZOLE 40 MG (PROTONIX) TAB PO SCH (07:56)
[2017-03-31] MEDS: CELECOXIB 100 MG (CeleBREX) CAP PO SCH (07:56)
[2017-03-31] MEDS: ARIPIPRAZOLE 10 MG (ABILIFY) TAB PO SCH (07:56)
[2017-03-31] MEDS: DOCUSATE SODIUM 100 MG (COLACE) CAP PO PRN (07:56)
[2017-03-31] MEDS: predniSONE 10 MG TAB PO SCH (07:57)
[2017-03-31 08:00] VITALS: BP 111/74
--- NOTE | 2017-03-31 09:36 | Discharge Instructions ---
Discharge [facility] Discharge Medications New, Converted or Re-Newed RX: Transmitted to Pharmacy New Medications: Prednisone (Prednisone) 10 Mg Tab 0 PO UD, #15 TAB 0 Refills Take 6 tabs (60mg) daily, decrease by 1 tab (10mg) daily. Continued Medications: Albuterol Sulfate (Proair Hfa) 1 Puff Puff 2 PUFF IH Q4H PRN for SHORTNESS OF BREATH Amitriptyline HCl (Amitriptyline HCl) 50 Mg Tablet 50 MG PO HS Aripiprazole (Aripiprazole) 10 Mg Tablet 10 MG PO DAILY Celecoxib (Celecoxib) 100 Mg Capsule 100 MG PO DAILY Pantoprazole Sodium (Pantoprazole Sodium) 40 Mg Tablet.dr 40 MG PO DAILY Tiotropium [place] (Spiriva) 1 Inh Aerp 1 CAP IH DAILY Topiramate (Topiramate) 50 Mg Tablet 50 MG PO BID Discontinued Medications: Doxycycline Hyclate (Doxycycline Hyclate) 100 Mg Capsule 100 MG PO Q12H FILLED 03/26/17 #20 FOR A 10 DAY THERAPY Prednisone (Prednisone) 20 Mg Tab 40 MG PO DAILY TAKES 2 (20 MG) TABLETS / FILLED 03/26/17 #10 FOR A 5 DAY THERAPY Patient Instructions Goal/Follow Up Appt: Follow up with Biju Carrero APRN on 04/08 at 1:40 pm. Return to The Hospital For: Fever, difficulty breathing Activity & Diet Discharge Diet: Regular Diet Activity as Tolerated: Yes Orders-Post D/C & Referrals Pneu Vac Indicated: Yes ELIA CASTLE MD Mar 31, 2017 7:59 am
--- NOTE | 2017-03-31 09:37 | Discharge Summary ---
Diagnosis/Chief Complaint Date of Admission Mar 28, 2017 at 4:45 pm Date of Discharge Mar 31, 2017 Admission Diagnosis Admission Diagnosis COPD exacerbation Viral upper respiratory infection Discharge Diagnosis COPD exacerbation -CXR without evidence of pneumonia and suspect viral infection as source of worsening given her laryngitis, nasal congestion and sore throat. Leukocytosis and thrombocytosis present but afebrile. -IV solumedrol, RT MAT procol, wean oxygen as tolerated, change to oral steroids tomorrow -Encouraged smoking cessation 03/30- changed to PO prednisone taper, wean oxygen 03/31 stable on room air, discharged with prednisone taper Viral URI - supportive care Chief Complaint/HPI Chief Complaint/HPI 41 yo female with history of COPD/asthma was sent to hospital from clinic due to desaturations and wheezing in spite of outpatient treatment. Zara states about a week ago her daughter got sick and then Zara got sick with on and off fever, nasal congestion, sore throat and productive cough and voice loss. She has had increasing shortness of breath in spite of using inhaler and was short of breath even trying to roll over in bed. Discharge Summary-Simple/Stand Consultations Discharge Physical Examination Allergies: Coded Allergies: No Known Drug Allergies (Unverified , 09/07/08) Vitals & I&Os Vital Sign - Last 12Hours Date Time Temp Pulse Resp B/P (MAP) Pulse Ox O2 Delivery O2 Flow Rate FiO2 03/31/17 08:00 98 Room Air 03/31/17 08:00 99.2 79 20 111/74 03/30/17 22:36 1.00 03/28/17 18:57 21 General Appearance: Alert, No Acute Distress Respiratory: Clear to Auscultation, Normal Air Movement Cardiovascular: Regular Rate, No Murmurs Neuro: Normal Gait, Normal Speech Hospital Course See final discharge diagnosis. Radiology Reviewed CXR 03/28/17: No acute cardiopulmonary process Discharge Instructions to patient/family Please see electronic discharge instructions given to patient. Discharge Medications Reviewed and agree with Discharge Medication list on patient's Discharge Instruction sheet Clinical Quality Measures DVT/VTE Risk/Contraindication: Risk Factor Score Per Nursin RFS Level Per Nursing on Admit: 3=High Copy Copies To 1: JEREMIE Mar BETHANY N MD Mar 31, 2017 09:37
[2017-03-31 10:00] VITALS: BP 111/74
== END 2017-03-31 09:12 | disposition home or self-care (01) ==
LOC: UNDOADMOB 16:15 → 4TH 16:15
PROVIDERS: ADMIT Family Medicine; ATTEND Family Medicine
DX: J44.1 Chronic obstructive pulmonary disease with (acute) exacerbation (principal); J06.9 Acute upper respiratory infection, unspecified; K21.9 Gastro-esophageal reflux disease without esophagitis; F41.9 Anxiety disorder, unspecified; F17.210 Nicotine dependence, cigarettes, uncomplicated; J45.909 Unspecified asthma, uncomplicated
CPT/HCPCS: 36415; 71020; 80053; 85007; 85025; 85027; 94640; 94664; 94760

== ENCOUNTER → 2018-03-01 | Outpatient (CLI) | payer MEDICAID ==
[~2018-03-01] MED LIST changes: +AMIT50TA3 PO; +ARIP10TA17 PO; +CELE100C84 PO; +DOXY100C2 PO; +PANT40TA3 PO; +PRD10T PO; +PRD20T PO; +RT-ALBUINH IH; +TIOT18CA2 IH; +TOPI50TA13 PO
--- NOTE | 2018-03-01 14:05 | Diagnostic Imaging Report ---
INDICATION: Palpable fullness in the lower inner left breast. COMPARISON: 12/24/2016 and 09/11/2013. TECHNIQUE: 2D and 3D bilateral diagnostic mammography was performed with CAD. FINDINGS: Scattered fibroglandular densities are identified bilaterally. There are benign calcifications bilaterally. No mass or malignant appearing microcalcifications are seen. The axillae are unremarkable. IMPRESSION: No mammographic features suspicious for malignancy are identified. Even so, directed sonographic interrogation of the area of fullness in the lower inner left breast is recommended and will be performed today. ACR BI-RADS Category 0: Incomplete. (Needs additional imaging evaluation). Result letter will be mailed to the patient. Note: At least 10% of breast cancer is not imaged by mammography. Dictated by: Dictated on workstation # [id number]
--- NOTE | 2018-03-01 14:14 | Diagnostic Imaging Report ---
INDICATION: Palpable abnormality in the left breast. Focused ultrasonography is performed from 6 to 9 o'clock positions in the left breast without evidence of underlying cystic or solid lesion. There is no architectural distortion or evidence of shadowing mass. IMPRESSION: Category one, negative left breast ultrasound. There is no ultrasound evidence of lesion associated with patient's palpable abnormality although mammographic correlation and physical exam follow up would be of use. Possible biopsy should be based on level of clinical suspicion. Dictated by: Dictated on workstation # [id number]
== END ==
LOC: RAD 12:11
PROVIDERS: ATTEND Nurse Practitioner Family
DX: N64.59 Other signs and symptoms in breast (principal)
CPT/HCPCS: 76642; 77066

== ENCOUNTER 2018-04-29 19:24 | Emergency (ER) | payer MEDICAID ==
[~2018-04-29] VITALS: Ht 152.4 cm; Wt 90.8 kg
[2018-04-29] MEDS ORDERED: LACTATED RINGERS 1,000 ML IV ONE (19:31)
[2018-04-29] MEDS ORDERED: UMEC62.5 (19:38)
[2018-04-29] MEDS ORDERED: HYDR-700 (19:38)
[2018-04-29] MEDS ORDERED: PRIM250T (19:38)
--- NOTE | 2018-04-29 19:39 | ED General ---
General Chief Complaint: General Problems/Pain Stated Complaint: COLLAPSED GOING TO BATHROOM,WEAK,WALKING SLOW Source of Information: Patient Exam Limitations: No Limitations History of Present Illness Date Seen by Provider: Apr 29, 2018 Time Seen by Provider: 19:37 Initial Comments Ambulatory to the emergency room with reports of having collapsed last night while going to the bathroom. She was evaluated at [facility] and told she likely had some sort of a virus. The weakness that she had last night persisted into today. She states that she feels weak all over and cannot further elaborate on her symptoms. She denies shortness of breath cough sore throat and fevers chills nausea vomiting diarrhea. She just feels weak. she did not hit her head when she fell Timing/Duration: 1-2 Days Severity: Moderate Associated Systoms: Weakness Allergies and Home Medications Allergies Coded Allergies: No Known Drug Allergies (Unverified , 09/07/08) Home Medications Albuterol Sulfate 1 Puff Puff, 2 PUFF IH Q4H PRN for SHORTNESS OF BREATH, ( Reported) Amitriptyline HCl 50 Mg Tablet, 50 MG PO HS, (Reported) Aripiprazole 10 Mg Tablet, 10 MG PO DAILY, (Reported) Bacitracin 28.4 Gm Oint...g., 1 GM TP BID mix with nystatin cream and apply beneath left breast twice daily. Prescribed by: GRANT HANSEN on 04/29/182052 Celecoxib 100 Mg Capsule, 100 MG PO DAILY, (Reported) Nystatin 15 Gm Cream..g., 1 GM TP TID Prescribed by: GRANT HANSEN on 04/29/182052 Pantoprazole Sodium 40 Mg Tablet.dr, 40 MG PO DAILY, (Reported) Prednisone 20 Mg Tab, 40 MG PO DAILY Prescribed by: GRANT HANSEN on 04/29/182052 Tiotropium [place] 1 Inh Aerp, 1 CAP IH DAILY, (Reported) Topiramate 50 Mg Tablet, 50 MG PO BID, (Reported) Patient Home Medication List Home Medication List Reviewed: Yes Review of Systems Review of Systems Constitutional: see HPI EENTM: see HPI Respiratory: no symptoms reported Cardiovascular: no symptoms reported Genitourinary: no symptoms reported Musculoskeletal: no symptoms reported Skin: no symptoms reported Psychiatric/Neurological: No Symptoms Reported Hematologic/Lymphatic: No Symptoms Reported Past Pxfomnd-Vwgfal-Irrwjj Hx Patient Social History Type Used: Cigars Recent Foreign Travel: No Contact w/Someone Who Travel: No Recent Hopitalizations: No Immunizations Up To Date Tetanus Booster (TDap): Unknown PED Vaccines UTD: Yes Date of Influenza Vaccine: Jan 14, 2017 Seasonal Allergies Seasonal Allergies: Yes Past Medical History Surgeries: Yes (LORI; ; TUBAL LIGATION; OVARIAN CYST; APPENDECTOMY; HILTON FUDOPL) Appendectomy, Section, Gallbladder, Tubal Ligation Respiratory: Yes (ASTHMA) Asthma Cardiac: No Syncope Neurological: Yes (SYNCOPE) Headaches /Migraines, Seizure Disorder Female Reproductive Disorders: Menstrual Problems, Ovarian Cyst Sexually Transmitted Disease: Yes (HERPES) Gastrointestinal: Yes (IBS) Gastroesophageal Reflux, Gall Bladder Disease, Irritable Bowel Musculoskeletal: No Arthritis, Fractures Endocrine: No Cancer: No Skin Psychosocial: Yes Sleep Difficulties, Anxiety, Suicide Attempts, Bipolar, Violent Behavior, Depression Integumentary: Yes (skin cancer) Herpes Blood Disorders: No Adverse Reaction/Blood Tranf: Yes (PAIN IN ARM , FEVER) Family Medical History Cardiovascular disease 19 MOTHER FH: arrhythmia 19 MOTHER FH: skin cancer 19 MOTHER Parkinson's disease 19 FATHER Heart Disease, Other Conditions/Hx Physical Exam Vital Signs Vital Signs - First Documented 04/29/18 19:30 Temp 99.6 Pulse 100 Resp 16 B/P (MAP) 121/64 (83) Pulse Ox 99 O2 Delivery Room Air Capillary Refill : Height, Weight, BMI Height: 5'0.00" Weight: 200lbs. 2.0oz. 90.788430pr; 39.1 BMI Method:Stated General Appearance: No Apparent Distress, WD/WN, Other (tearful, crying during my entire exam with her. States that she is crying because she "doesn't feel good") Eyes: Bilateral Eye Normal Inspection, Bilateral Eye PERRL HEENT: PERRL/EOMI, TMs Normal Neck: Full Range of Motion, Normal Inspection Respiratory: No Accessory Muscle Use, No Respiratory Distress Cardiovascular: Normal Peripheral Pulses, Tachycardia (101) Gastrointestinal: Normal Bowel Sounds, Non Tender, Soft Extremity: Normal Capillary Refill, Normal Inspection Neurologic/Psychiatric: Alert, Oriented x3 Skin: Normal Color, Warm/Dry, Other (erythema and tenderness and maceration beneath the left breast fold consistent with intertrigo) Progress/Results/Core Measures Suspected Sepsis SIRS Temperature: Pulse: Respiratory Rate: Laboratory Tests 04/29/18 19:50: White Blood Count 11.0 Blood Pressure / Mean: Laboratory Tests 04/29/18 19:50: Creatinine 0.82, Platelet Count 461H, Total Bilirubin 0.3 Results/Orders Lab Results Laboratory Tests Test 04/29/18 19:40 04/29/18 19:50 Range/Units Urine Color YELLOW Urine Clarity CLEAR Urine pH 7 5-9 Urine Specific [place] 1.005 L 1.016-1.022 Urine Protein NEGATIVE NEGATIVE Urine Glucose (UA) NEGATIVE NEGATIVE Urine Ketones NEGATIVE NEGATIVE Urine Nitrite NEGATIVE NEGATIVE Urine Bilirubin NEGATIVE NEGATIVE Urine Urobilinogen NORMAL NORMAL MG/DL Urine Leukocyte Esterase NEGATIVE NEGATIVE Urine RBC (Auto) NEGATIVE NEGATIVE Urine RBC NONE /HPF Urine WBC 0-2 /HPF Urine Squamous Epithelial Cells 5-10 /HPF Urine Renal Epithelial Cells NONE /HPF Urine Crystals NONE /LPF Urine Bacteria NEGATIVE /HPF Urine Casts NONE /LPF Urine Mucus NEGATIVE /LPF Urine Culture Indicated NO Urine Opiates Screen NEGATIVE NEGATIVE Urine Oxycodone Screen NEGATIVE NEGATIVE Urine Methadone Screen NEGATIVE NEGATIVE Urine Propoxyphene Screen NEGATIVE NEGATIVE Urine Barbiturates Screen POSITIVE H NEGATIVE Ur Tricyclic Antidepressants Screen POSITIVE H NEGATIVE Urine Phencyclidine Screen NEGATIVE NEGATIVE Urine Amphetamines Screen NEGATIVE NEGATIVE Urine Methamphetamines Screen NEGATIVE NEGATIVE Urine Benzodiazepines Screen NEGATIVE NEGATIVE Urine Cocaine Screen NEGATIVE NEGATIVE Urine Cannabinoids Screen NEGATIVE NEGATIVE White Blood Count 11.0 4.3-11.0 10^3/uL Red Blood Count 4.02 L 4.35-5.85 10^6/uL Hemoglobin 10.7 L 11.5-16.0 G/DL Hematocrit 33 L 35-52 % Mean Corpuscular Volume 83 80-99 FL Mean Corpuscular Hemoglobin 27 25-34 PG Mean Corpuscular Hemoglobin Concent 32 32-36 G/DL Red Cell Distribution Width 17.1 H 10.0-14.5 % Platelet Count 461 H 130-400 10^3/uL Mean Platelet Volume 9.2 7.4-10.4 FL Neutrophils (%) (Auto) 70 42-75 % Lymphocytes (%) (Auto) 20 12-44 % Monocytes (%) (Auto) 7 0-12 % Eosinophils (%) (Auto) 3 0-10 % Basophils (%) (Auto) 0 0-10 % Neutrophils # (Auto) 7.6 1.8-7.8 X 10^3 Lymphocytes # (Auto) 2.2 1.0-4.0 X 10^3 Monocytes # (Auto) 0.8 0.0-1.0 X 10^3 Eosinophils # (Auto) 0.4 H 0.0-0.3 10^3/uL Basophils # (Auto) 0.0 0.0-0.1 10^3/uL Sodium Level 138 135-145 MMOL/L Potassium Level 3.6 3.6-5.0 MMOL/L Chloride Level 106 98-107 MMOL/L Carbon Dioxide Level 22 21-32 MMOL/L Anion Gap 10 5-14 MMOL/L Blood Urea Nitrogen 8 7-18 MG/DL Creatinine 0.82 0.60-1.30 MG/DL Estimat Glomerular Filtration Rate > 60 BUN/Creatinine Ratio 10 Glucose Level 90 70-105 MG/DL Calcium Level 8.9 8.5-10.1 MG/DL Corrected Calcium 8.8 8.5-10.1 MG/DL Magnesium Level 2.0 1.8-2.4 MG/DL Total Bilirubin 0.3 0.1-1.0 MG/DL Aspartate Amino Transf (AST/SGOT) 16 5-34 U/L Alanine Aminotransferase (ALT/SGPT) 10 0-55 U/L Alkaline Phosphatase 86 40-136 U/L Troponin I < 0.30 <0.30 NG/ML Total Protein 7.6 6.4-8.2 GM/DL Albumin 4.1 3.2-4.5 GM/DL TSH [place] Testing 1.91 0.35-4.94 UIU/ML Serum Test, Qualitative NEGATIVE NEGATIVE Serum Alcohol < 10 <10 MG/DL Monoscreen NEGATIVE NEGATIVE My Orders Orders - GRANT HANSEN SHOW JUMPING INSTRUCTOR Monotest (04/29/18 19:39) Albuterol/Ipra Inhalation Soln (Duoneb I (04/29/18 20:45) Svn Small Volume Nebulizer (04/29/18 20:35) Methylprednisolone Sod Succ (Solu-Medrol (04/29/18 20:45) BNP (04/29/18 20:37) Chest 1 View, Ap/Pa Only (04/29/18 20:37) Albuterol/Ipra Inhalation Soln (Duoneb I (04/29/18 21:00) Medications Given in ED Current Medications Medications Dose Ordered Sig/Hao Route Start Time Stop Time Status Last Admin Dose Admin Albuterol/ Ipratropium 3 ml ONCE ONCE INH 04/29/18 20:45 04/29/18 20:46 DC 04/29/18 20:49 3 ML Albuterol/ Ipratropium 3 ml ONCE ONCE INH 04/29/18 21:00 04/29/18 21:01 DC 04/29/18 20:54 3 ML Lactated Ringer's 1,000 ml @ 0 mls/hr Q0M ONCE IV 04/29/18 19:31 04/29/18 19:34 DC 04/29/18 19:52 0 MLS/HR Methylprednisolone Sodium Succinate 125 mg ONCE ONCE IVP 04/29/18 20:45 04/29/18 20:46 DC 04/29/18 20:39 125 MG Vital Signs/I&O 04/29/18 04/29/18 04/29/18 04/29/18 19:30 19:43 20:05 20:49 Temp 99.6 Pulse 100 96 96 104 104 96 98 Resp 16 B/P (MAP) 121/64 (83) 118/70 (86) 118/70 (86) 118/89 (99) 118/89 (99) 121/64 (83) 121/64 (83) Pulse Ox 99 99 O2 Delivery Room Air Room Air 04/29/18 20:54 Pulse Ox 100 O2 Delivery Room Air Capillary Refill : Departure Communication (Admissions) 2035-patient is now wheezy which was not noticed initially on arrival. We'll give a DuoNeb and 125 mg of Solu-Medrol. Also noted is hypotension with blood pressure of upper 80s to low 90s systolic. Heart rate is fine still in the 80s sinus rhythm without ectopy. Orthostatic vital signs were obtained and attached to nursing documentation. Please do NOT support orthostatic hypotension. 2103- spoke with Dr. Lagunas. We will plan to discharge home since she is overall feeling better, mentating well despite the hypotension without obvious cause. Impression Primary Impression: Transient hypotension Additional Impressions: Reactive airway disease Intertrigo Weakness Disposition: HOME, SELF-CARE Condition: Stable Departure-Patient Inst. Decision time for Depature: 20:50 Referrals: GENESIS DYSON DO (PCP) Primary Care Physician MOOK GONZALES APRN (Family) Primary Care Physician Patient Instructions: Generalized Weakness Add. Discharge Instructions: 1. Apply the creams beneath her left breast as directed. Follow-up with primary care next week 2. Steroids as directed. Return to ER for any worsening. All discharge instructions reviewed with patient and/or family. Voiced understanding. Scripts Bacitracin (Bacitracin) 28.4 Gm Oint...g. 1 GM TP BID, #1 TUBE mix with nystatin cream and apply beneath left breast twice daily. Prov: GRANT HANSEN APRN 04/29/18 Nystatin (Nystatin) 15 Gm Cream..g. 1 GM TP TID, #1 TUBE Prov: GRANT HANSEN APRN 04/29/18 Prednisone (Prednisone) 20 Mg Tab 40 MG PO DAILY, #8 TAB Prov: GRANT HANSEN APRN 04/29/18 GRANT HANSEN APRN Apr 29, 2018 19:39
[2018-04-29 19:43] VITALS: BP_SYST 118; BP_SYST 121; BP_DIAS 64; BP_DIAS 70; BP_DIAS 89
[2018-04-29 20:01] LABS: BILIRUBIN,URINE NEGATIVE (NEGATIVE); CLARITY,URINE CLEAR; COLOR,URINE YELLOW; GLUCOSE, URINE (UA) NEGATIVE (NEGATIVE); KETONES,URINE NEGATIVE (NEGATIVE); LEUKOCYTE ESTERASE ,URINE NEGATIVE (NEGATIVE); NITRITE,URINE NEGATIVE (NEGATIVE); PH,URINE 7 (5-9); PROTEIN,URINE NEGATIVE (NEGATIVE); UROBILINOGEN,URINE NORMAL (NORMAL)
[2018-04-29 20:05] VITALS: BP_SYST 118; BP_SYST 121; BP_DIAS 64; BP_DIAS 70; BP_DIAS 89
[2018-04-29 20:06] LABS: BACTERIA,URINE NEGATIVE /HPF; WBC,URINE 0-2 /HPF
[2018-04-29 20:08] LABS: AMPHETAMINE SCREEN, URINE NEGATIVE (NEGATIVE); BARBITURATE SCREEN URINE POSITIVE (NEGATIVE); BENZODIAZEPINES SCREEN URINE NEGATIVE (NEGATIVE); CANNABINOID SCREEN, URINE NEGATIVE (NEGATIVE); COCAINE SCREEN URINE NEGATIVE (NEGATIVE); METHADONE STAT NEGATIVE (NEGATIVE); METHAMPHETAMINE SCREEN URINE S NEGATIVE (NEGATIVE); OPIATE SCREEN URINE NEGATIVE (NEGATIVE); OXYCODONE STAT NEGATIVE (NEGATIVE); PROPOXYPHENE STAT NEGATIVE (NEGATIVE); TRICYCLIC ANTIDEPRESSANTS SCRE POSITIVE (NEGATIVE)
[2018-04-29 20:11] LABS: BASOPHILS % (AUTO) 0 % (0-10); EOSINOPHILS # (AUTO) 0.4 10^3/uL (0.0-0.3); EOSINOPHILS % (AUTO) 3 % (0-10); HEMATOCRIT 33 % (35-52); HEMOGLOBIN 10.7 G/DL (11.5-16.0); LYMPHOCYTES # (AUTO) 2.2 X 10^3 (1.0-4.0); LYMPHOCYTES % (AUTO) 20 % (12-44); MEAN CORPUSCULAR HEMOGLOBIN 27 PG (25-34); MEAN CORPUSCULAR HGB CONC 32 G/DL (32-36); MEAN CORPUSCULAR VOLUME 83 FL (80-99); MEAN PLATELET VOLUME 9.2 FL (7.4-10.4); MONOCYTES # (AUTO) 0.8 X 10^3 (0.0-1.0); MONOCYTES % (AUTO) 7 % (0-12); NEUTROPHILS # (AUTO) 7.6 X 10^3 (1.8-7.8); NEUTROPHILS % (AUTO) 70 % (42-75); PLATELET COUNT 461 10^3/uL (130-400); RED BLOOD COUNT 4.02 10^6/uL (4.35-5.85); RED CELL DISTRIBUTION WIDTH 17.1 % (10.0-14.5)
[2018-04-29 20:26] LABS: ALANINE AMINOTRANSFERASE 10 U/L (0-55); ALBUMIN 4.1 GM/DL (3.2-4.5); ALKALINE PHOSPHATASE 86 U/L (40-136); BILIRUBIN,TOTAL 0.3 MG/DL (0.1-1.0); BUN/CREATININE RATIO 10; CALCIUM 8.9 MG/DL (8.5-10.1); CARBON DIOXIDE 22 MMOL/L (21-32); CHLORIDE 106 MMOL/L (98-107); CREATININE SERUM 0.82 MG/DL (0.60-1.30); GFR ESTIMATED > 60; GLUCOSE 90 MG/DL (70-105); POTASSIUM 3.6 MMOL/L (3.6-5.0); SODIUM 138 MMOL/L (135-145); TOTAL PROTEIN 7.6 GM/DL (6.4-8.2)
[2018-04-29] MEDS ORDERED: RT-ALBUTEROL/IPRATROPIUM 3 ML (DUONEB) VIAL INH ONE ×2 (20:45→21:00)
[2018-04-29] MEDS ORDERED: methylPREDNISolone 125 MG (Solu-MEDROL) VIAL IVP ONE (20:45)
[2018-04-29 20:46] LABS: TSH (THYROID ANALYZER) 1.91 UIU/ML (0.35-4.94)
[2018-04-29] MEDS ORDERED: PRD20T PO (20:53)
[2018-04-29] MEDS ORDERED: BACI28.4 TP (20:53)
[2018-04-29] MEDS ORDERED: NYST15CR TP (20:53)
--- NOTE | 2018-04-29 21:06 | Diagnostic Imaging Report ---
INDICATION: Weakness COMPARISON: 03/28/2017 FINDINGS: Single view of the chest demonstrates clear lungs bilaterally. The heart is normal. There is no pneumothorax. Osseous structures are normal. IMPRESSION: Negative chest Dictated by: Dictated on workstation # [id number]
[2018-04-29 21:12] VITALS: BP 111/65
== END 2018-04-29 21:13 | disposition home or self-care (01) ==
LOC: EDUNIT# 19:24 → ER 19:26
DX: J45.909 Unspecified asthma, uncomplicated (principal); L30.4 Erythema intertrigo; I95.9 Hypotension, unspecified; R53.1 Weakness; G40.909 Epilepsy, unspecified, not intractable, without status epilepticus; G43.909 Migraine, unspecified, not intractable, without status migrainosus; K21.9 Gastro-esophageal reflux disease without esophagitis; F41.9 Anxiety disorder, unspecified; F31.9 Bipolar disorder, unspecified; Z82.49 Family history of ischemic heart disease and other diseases of the circulatory system; Z80.8 Family history of malignant neoplasm of other organs or systems; Z86.19 Personal history of other infectious and parasitic diseases; Z91.5 Personal history of self-harm; Z85.828 Personal history of other malignant neoplasm of skin; Z87.19 Personal history of other diseases of the digestive system; Z79.51 Long term (current) use of inhaled steroids; Z79.52 Long term (current) use of systemic steroids; Z98.890 Other specified postprocedural states; Z98.51 Tubal ligation status; Z90.89 Acquired absence of other organs
CPT/HCPCS: 36415; 71045; 80053; 80306; 80320; 81000; 83735; 83880; 84443; 84484; 84703; 85025; 86308; 93005; 93041; 94640

== ENCOUNTER 2018-08-21 22:06 | Emergency (ER) | payer MEDICAID ==
[~2018-08-21] VITALS: Ht 152.4 cm; Wt 99.8 kg
[~2018-08-21 22:06] MED LIST changes: +BACI28.4 TP; +HYDR-700; +NYST15CR TP; +PRIM250T; +UMEC62.5
[2018-08-21 22:25] LABS: BASOPHILS % (AUTO) 0 % (0-10); EOSINOPHILS # (AUTO) 0.3 10^3/uL (0.0-0.3); EOSINOPHILS % (AUTO) 2 % (0-10); HEMATOCRIT 35 % (35-52); HEMOGLOBIN 11.3 G/DL (11.5-16.0); LYMPHOCYTES # (AUTO) 1.8 X 10^3 (1.0-4.0); LYMPHOCYTES % (AUTO) 16 % (12-44); MEAN CORPUSCULAR HEMOGLOBIN 25 PG (25-34); MEAN CORPUSCULAR HGB CONC 32 G/DL (32-36); MEAN CORPUSCULAR VOLUME 77 FL (80-99); MEAN PLATELET VOLUME 8.9 FL (7.4-10.4); MONOCYTES # (AUTO) 0.7 X 10^3 (0.0-1.0); MONOCYTES % (AUTO) 6 % (0-12); NEUTROPHILS # (AUTO) 8.3 X 10^3 (1.8-7.8); NEUTROPHILS % (AUTO) 75 % (42-75); PLATELET COUNT 454 10^3/uL (130-400); RED CELL DISTRIBUTION WIDTH 18.7 % (10.0-14.5)
[2018-08-21 22:29] LABS: INR 0.9 (0.8-1.4); PROTHROMBIN TIME PATIENT 12.8 SEC (12.2-14.7)
[2018-08-21 22:39] LABS: ALANINE AMINOTRANSFERASE 14 U/L (0-55); ALBUMIN 4.3 GM/DL (3.2-4.5); ALKALINE PHOSPHATASE 90 U/L (40-136); AMYLASE 63 U/L (25-125); BILIRUBIN,TOTAL 0.2 MG/DL (0.1-1.0); BUN/CREATININE RATIO 10; CALCIUM 9.5 MG/DL (8.5-10.1); CARBON DIOXIDE 21 MMOL/L (21-32); CHLORIDE 108 MMOL/L (98-107); GFR ESTIMATED > 60; GLUCOSE 101 MG/DL (70-105); LIPASE 39 U/L (8-78); POTASSIUM 3.7 MMOL/L (3.6-5.0); SODIUM 139 MMOL/L (135-145); TOTAL PROTEIN 7.9 GM/DL (6.4-8.2)
[2018-08-21 22:40] LABS: ACETAMINOPHEN < 10 UG/ML (10-30)
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
[2018-08-21 23:23] LABS: BILIRUBIN,URINE NEGATIVE (NEGATIVE); CLARITY,URINE VERY CLOUDY; COLOR,URINE YELLOW; GLUCOSE, URINE (UA) NEGATIVE (NEGATIVE); KETONES,URINE NEGATIVE (NEGATIVE); LEUKOCYTE ESTERASE ,URINE 3+ (NEGATIVE); NITRITE,URINE POSITIVE (NEGATIVE); PH,URINE 6.5 (5-9); PROTEIN,URINE 2+ (NEGATIVE); UROBILINOGEN,URINE NORMAL (NORMAL)
[2018-08-21 23:28] LABS: RBC,URINE 0-2 /HPF
[2018-08-21 23:29] LABS: BACTERIA,URINE LARGE /HPF; SQUAMOUS EPITHELIAL CELL,UR 25-50 /HPF
[2018-08-21 23:36] LABS: AMPHETAMINE SCREEN, URINE NEGATIVE (NEGATIVE); BARBITURATE SCREEN URINE NEGATIVE (NEGATIVE); BENZODIAZEPINES SCREEN URINE NEGATIVE (NEGATIVE); CANNABINOID SCREEN, URINE NEGATIVE (NEGATIVE); COCAINE SCREEN URINE NEGATIVE (NEGATIVE); METHADONE STAT NEGATIVE (NEGATIVE); METHAMPHETAMINE SCREEN URINE S NEGATIVE (NEGATIVE); OPIATE SCREEN URINE NEGATIVE (NEGATIVE); OXYCODONE STAT NEGATIVE (NEGATIVE); PROPOXYPHENE STAT NEGATIVE (NEGATIVE); TRICYCLIC ANTIDEPRESSANTS SCRE POSITIVE (NEGATIVE)
[2018-08-22] MEDS ORDERED: IOHEXOL 350 MG/ML 100 ML (OMNIPAQUE 350) VIAL IV ONE (00:45)
[2018-08-22] MEDS ORDERED: RX-CYCLOBENZAPRINE 10 MG (FLEXERIL) TAB PPK#3 PO STA (00:48)
[2018-08-22] MEDS ORDERED: RX-NAPROXEN (NAPROSYN) 250 MG TAB PPK#4 PO STA (00:48)
[2018-08-22] MEDS ORDERED: CYCL10TA9 PO (00:53)
[2018-08-22] MEDS ORDERED: NAPR-915 PO (00:53)
[2018-08-22] MEDS ORDERED: NITR-65 PO (00:53)
[2018-08-22 01:06] VITALS: BP 105/71
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
== END 2018-08-22 01:06 | disposition home or self-care (01) ==
LOC: ER 22:06 → EDUNIT# 22:06 → ER 08-22 01:06
DX: S16.1XXA Strain of muscle, fascia and tendon at neck level, initial encounter (principal); S20.211A Contusion of right front wall of thorax, initial encounter; S30.1XXA Contusion of abdominal wall, initial encounter; S80.02XA Contusion of left knee, initial encounter; S90.31XA Contusion of right foot, initial encounter; N39.0 Urinary tract infection, site not specified; J44.9 Chronic obstructive pulmonary disease, unspecified; G40.909 Epilepsy, unspecified, not intractable, without status epilepticus; K21.9 Gastro-esophageal reflux disease without esophagitis; K58.9 Irritable bowel syndrome, unspecified; E66.9 Obesity, unspecified; F41.9 Anxiety disorder, unspecified; G56.03 Carpal tunnel syndrome, bilateral upper limbs; F31.9 Bipolar disorder, unspecified; G43.909 Migraine, unspecified, not intractable, without status migrainosus; F17.210 Nicotine dependence, cigarettes, uncomplicated; Z87.19 Personal history of other diseases of the digestive system; Z91.5 Personal history of self-harm; Z86.19 Personal history of other infectious and parasitic diseases; Z82.49 Family history of ischemic heart disease and other diseases of the circulatory system; Z80.8 Family history of malignant neoplasm of other organs or systems; Z85.828 Personal history of other malignant neoplasm of skin; Z90.49 Acquired absence of other specified parts of digestive tract; Z87.440 Personal history of urinary (tract) infections; Z98.890 Other specified postprocedural states; Z98.51 Tubal ligation status; Z79.52 Long term (current) use of systemic steroids; V43.53XA Car driver injured in collision with pick-up truck in traffic accident, initial encounter; Y92.410 Unspecified street and highway as the place of occurrence of the external cause
CPT/HCPCS: 36415; 70450; 70486; 71045; 71260; 72125; 72128; 72131; 72170; 73562; 73590; 73630; 74177; 80053; 80306; 80320; 80329; 81000; 82150; 83690; 84484; 84703; 85025; 85610; 85730; 87077; 87088; 87186; 93005; 93041

== ENCOUNTER → 2019-06-25 | Outpatient (CLI) | payer SELFPAY ==
[~2019-06-25] MED LIST changes: +HYDR-700 PO; +NAPR-915 PO
== END ==
LOC: FNS 17:26
PROVIDERS: ATTEND Emergency Medicine
DX: Z02.89 Encounter for other administrative examinations (principal)

== ENCOUNTER 2019-06-26 15:13 | Emergency (ER) | payer MEDICAID, OTHER ==
[~2019-06-26] VITALS: Ht 152 cm; Wt 98.0 kg
[~2019-06-26 15:13] MED LIST changes: -HYDR-700 PO
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
[2019-06-26] MEDS ORDERED: ALPRAZolam 0.25 MG (XANAX) TAB PO ONE (15:30)
--- NOTE | 2019-06-26 15:30 | NUR ---
Called registration requesting pastoral care at this time.
[2019-06-26] MEDS ORDERED: HYDR-700 PO ×2 (15:36→17:07)
--- NOTE | 2019-06-26 16:09 | NUR ---
Adah in room with pt at this time.
[2019-06-26 17:00] VITALS: BP 122/85
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
== END 2019-06-26 17:00 | disposition home or self-care (01) ==
LOC: EDUNIT# 15:13 → ER 15:14
DX: F41.9 Anxiety disorder, unspecified (principal); J44.9 Chronic obstructive pulmonary disease, unspecified; K21.9 Gastro-esophageal reflux disease without esophagitis; G40.909 Epilepsy, unspecified, not intractable, without status epilepticus; F31.9 Bipolar disorder, unspecified; E66.9 Obesity, unspecified; Z79.52 Long term (current) use of systemic steroids; Z77.22 Contact with and (suspected) exposure to environmental tobacco smoke (acute) (chronic); Z68.41 Body mass index [BMI] 40.0-44.9, adult; Z85.828 Personal history of other malignant neoplasm of skin; Z80.9 Family history of malignant neoplasm, unspecified; Z82.49 Family history of ischemic heart disease and other diseases of the circulatory system
CPT/HCPCS: 99283

== ENCOUNTER 2019-11-24 19:02 | Emergency (ER) | payer MEDICAID ==
[~2019-11-24] VITALS: Ht 162 cm; Wt 79.7 kg
[~2019-11-24 19:02] MED LIST changes: +HYDR-700 PO
[2019-11-24 19:05] VITALS: BP 107/71
--- NOTE | 2019-11-24 19:12 | ED Upper Extremity ---
General Stated Complaint: MULTIPLE FINGER ISSUES Source: patient Exam Limitations: no limitations History of Present Illness Date Seen by Provider: Nov 24, 2019 Time Seen by Provider: 19:08 Initial Comments will to ER with bilateral hand issues, both hands are numb and tingling occasionally and she has some shooting pains in her hands. She also reports that she is able to flex her ring finger on the left but is unable to extend it again without "popping". The symptoms of been getting progressively worse over a couple of months Onset: other (S GSE ) Severity: moderate Pain/Injury Location: bilateral hand; left 4th finger Method of Injury: unknown Modifying Factors: Worse With Movement Allergies and Home Medications Allergies Coded Allergies: No Known Drug Allergies (Unverified , 09/07/08) Home Medications Albuterol Sulfate 1 Puff Puff, 2 PUFF IH Q4H PRN for SHORTNESS OF BREATH, (Reported) Amitriptyline HCl 50 Mg Tablet, 50 MG PO HS, (Reported) Aripiprazole 10 Mg Tablet, 10 MG PO DAILY, (Reported) Bacitracin 28.4 Gm Oint...g., 1 GM TP BID mix with nystatin cream and apply beneath left breast twice daily. Prescribed by: GRANT HANSEN on 04/29/182052 Celecoxib 100 Mg Capsule, 100 MG PO DAILY, (Reported) Cyclobenzaprine HCl 10 Mg Tablet, 10 MG PO Q8H Prescribed by: MENA CHIRINOS on 08/22/1852 Hydroxyzine HCl 25 Mg Tablet, 25 MG PO Q4H PRN for ANXIETY . Prescribed by: GRANT HANSEN on 06/26/191706 Naproxen 500 Mg Tablet, 500 MG PO BID Prescribed by: MENA CHIRINOS on 08/22/1852 Nitrofurantoin Monohyd/M-Cryst 100 Mg Capsule, 100 MG PO BID Prescribed by: MENA CHIRINOS on 08/22/1852 Nystatin 15 Gm Cream..g., 1 GM TP TID Prescribed by: GRANT HANSEN on 04/29/182052 Pantoprazole Sodium 40 Mg Tablet.dr, 40 MG PO DAILY, (Reported) Prednisone 20 Mg Tab, 40 MG PO DAILY Prescribed by: GRANT HANSEN on 04/29/182052 Tiotropium [place] 1 Inh Aerp, 1 CAP IH DAILY, (Reported) Topiramate 50 Mg Tablet, 50 MG PO BID, (Reported) Patient Home Medication List Home Medication List Reviewed: Yes Review of Systems Constitutional: see HPI EENTM: see HPI Respiratory: no symptoms reported Cardiovascular: no symptoms reported Genitourinary: no symptoms reported Musculoskeletal: see HPI Skin: no symptoms reported Psychiatric/Neurological: No Symptoms Reported Past Ldvxlja-Eifgqv-Blgnln Hx Patient Social History Drug of Choice: THC, METH-CLAIMS NO USE FOR 2 YEARS, PER PT 08/21/18. .DENIES IV USE Type Used: Cigarettes 2nd Hand Smoke Exposure: Yes Recent Foreign Travel: No Contact w/Someone Who Travel: No Recent Hopitalizations: No Immunizations Up To Date Tetanus Booster (TDap): Unknown PED Vaccines UTD: Yes Date of Influenza Vaccine: Jan 14, 2017 Seasonal Allergies Seasonal Allergies: Yes Past Medical History Surgeries: Yes Abdominal, Appendectomy, Section, Gallbladder, Tubal Ligation Respiratory: Yes (ASTHMA) Asthma, COPD Cardiac: No Syncope Neurological: Yes (SYNCOPE) Headaches /Migraines, Seizure Disorder Female Reproductive Disorders: Menstrual Problems, Ovarian Cyst Sexually Transmitted Disease: Yes (HERPES) HIV/AIDS: No Genitourinary: Yes UTI-Chronic Gastrointestinal: Yes (IBS) Gastroesophageal Reflux, Gall Bladder Disease, Irritable Bowel Musculoskeletal: Yes (CHRONIC NECK AND BACK PAIN; BILATERAL CARPAL TUNNEL SYMPTOMS) Arthritis, Chronic Back Pain, Fractures Endocrine: Yes (OVESITY) HEENT: No Cancer: Yes Skin Did You Recieve Any Treatments: Yes What Type of Treatment Did You: Surgical Intervention Psychosocial: Yes Sleep Difficulties, Anxiety, Suicide Attempts, Bipolar, Violent Behavior, Depression Integumentary: Yes (skin cancer) Herpes Blood Disorders: No Adverse Reaction/Blood Tranf: Yes (PAIN IN ARM , FEVER) Family Medical History Cardiovascular disease 19 MOTHER FH: arrhythmia 19 MOTHER FH: skin cancer 19 MOTHER Parkinson's disease 19 FATHER Heart Disease, Other Conditions/Hx Physical Exam Vital Signs Capillary Refill : Height, Weight, BMI Height: 5'0" Weight: 220lbs. 0oz. 99.603942ne; 42.00 BMI Method:Stated General Appearance: WD/WN, no apparent distress HEENT: PERRL/EOMI, normal ENT inspection Neck: non-tender, full range of motion Respiratory: no respiratory distress, no accessory muscle use Elbow/Forearm: normal inspection, non-tender Wrist: Yes normal inspection, Yes non-tender Hand: normal inspection, soft tissue tenderness (palpable nodule over the flexor tendon of the distal fourth metacarpal) Neurologic/Psychiatric: alert, normal mood/affect, oriented x 3 Skin: normal color, warm/dry Departure Impression Primary Impression: Trigger finger of left hand Additional Impression: Carpal tunnel syndrome on both sides Disposition: 01 HOME, SELF-CARE Condition: Stable Departure-Patient Inst. Decision time for Depature: 19:12 Referrals: NO,LOCAL PHYSICIAN (PCP) Primary Care Physician JOSEPHINE ALBA MD, MICHAEL P MD Patient Instructions: Carpal Tunnel Syndrome, Trigger Finger (DC) Add. Discharge Instructions: 1. Call one of the physicians listed on Tuesday to make an appointment to be seen GRANT HANSEN APRN Nov 24, 2019 19:12
== END 2019-11-24 19:13 | disposition home or self-care (01) ==
LOC: EDUNIT# 19:02 → ER 19:03
DX: M65.342 Trigger finger, left ring finger (principal); G56.03 Carpal tunnel syndrome, bilateral upper limbs; J44.9 Chronic obstructive pulmonary disease, unspecified; G40.909 Epilepsy, unspecified, not intractable, without status epilepticus; K58.9 Irritable bowel syndrome, unspecified; K21.9 Gastro-esophageal reflux disease without esophagitis; B00.9 Herpesviral infection, unspecified; E66.9 Obesity, unspecified; Z68.30 Body mass index [BMI] 30.0-30.9, adult; F41.9 Anxiety disorder, unspecified; F31.9 Bipolar disorder, unspecified
CPT/HCPCS: 99282

== ENCOUNTER 2020-05-26 12:50 | Emergency (ER) | payer SELFPAY ==
[~2020-05-26] VITALS: Ht 152 cm; Wt 86.8 kg
[~2020-05-26 12:50] MED LIST changes: -PANT40TA3 PO; +PANT40TA52 PO
[2020-05-26] MEDS ORDERED: METH4TAB10 PO (13:05)
--- NOTE | 2020-05-26 13:06 | ED Upper Extremity ---
General Stated Complaint: R HAND GOES NUMB/ASLEEP Source: patient Exam Limitations: no limitations History of Present Illness Date Seen by Provider: May 26, 2020 Time Seen by Provider: 13:03 Initial Comments To ER with reports of right hand going to sleep/numbness for the past 5 months. No known injury. [place] She states this affects all fingers. She was stung by a wasp on the thumb and at the elbow 1 year ago and it "burned really bad" Onset: other Severity: moderate Pain/Injury Location: right hand Method of Injury: unknown Modifying Factors: Improves With Movement Allergies and Home Medications Allergies Coded Allergies: No Known Drug Allergies (Unverified , 09/07/08) Home Medications Albuterol Sulfate 1 Puff Puff, 2 PUFF IH Q4H PRN for SHORTNESS OF BREATH, (Reported) Amitriptyline HCl 50 Mg Tablet, 50 MG PO HS, (Reported) Aripiprazole 10 Mg Tablet, 10 MG PO DAILY, (Reported) Bacitracin 28.4 Gm Oint...g., 1 GM TP BID mix with nystatin cream and apply beneath left breast twice daily. Prescribed by: GRANT HANSEN on 04/29/182052 Celecoxib 100 Mg Capsule, 100 MG PO DAILY, (Reported) Cyclobenzaprine HCl 10 Mg Tablet, 10 MG PO Q8H Prescribed by: MENA CHIRINOS on 08/22/1852 Hydroxyzine HCl 25 Mg Tablet, 25 MG PO Q4H PRN for ANXIETY . Prescribed by: GRANT HANSEN on 06/26/19 170 Naproxen 500 Mg Tablet, 500 MG PO BID Prescribed by: MENA CHIRINOS on 08/22/1852 Nitrofurantoin Monohyd/M-Cryst 100 Mg Capsule, 100 MG PO BID Prescribed by: MENA CHIRINOS on 08/22/1852 Nystatin 15 Gm Cream..g., 1 GM TP TID Prescribed by: GRANT HANSEN on 04/29/182052 Pantoprazole Sodium 40 Mg Tablet.dr, 40 MG PO DAILY, (Reported) Prednisone 20 Mg Tab, 40 MG PO DAILY Prescribed by: GRANT HANSEN on 04/29/[address] [place] 1 Inh Aerp, 1 CAP IH DAILY, (Reported) Topiramate 50 Mg Tablet, 50 MG PO BID, (Reported) Patient Home Medication List Home Medication List Reviewed: Yes Review of Systems Constitutional: see HPI EENTM: see HPI Respiratory: no symptoms reported Cardiovascular: no symptoms reported Genitourinary: no symptoms reported Musculoskeletal: see HPI Skin: no symptoms reported Psychiatric/Neurological: No Symptoms Reported Past Axwimcl-Lxgtgv-Sdtdis Hx Patient Social History Drug of Choice: denies Type Used: Cigarettes 2nd Hand Smoke Exposure: Yes Recent Foreign Travel: No Contact w/Someone Who Travel: No Recent Hopitalizations: No Immunizations Up To Date Tetanus Booster (TDap): Unknown PED Vaccines UTD: Yes Date of Influenza Vaccine: Jan 14, 2017 Seasonal Allergies Seasonal Allergies: Yes Past Medical History Surgeries: Yes Abdominal, Appendectomy, Section, Gallbladder, Tubal Ligation Respiratory: Yes Asthma, COPD Cardiac: No Syncope Neurological: Yes Headaches /Migraines, Seizure Disorder Female Reproductive Disorders: Menstrual Problems, Ovarian Cyst Sexually Transmitted Disease: Yes (HERPES) HIV/AIDS: No Genitourinary: Yes UTI-Chronic Gastrointestinal: Yes Gastroesophageal Reflux, Gall Bladder Disease, Irritable Bowel Musculoskeletal: Yes (CHRONIC NECK AND BACK PAIN; BILATERAL CARPAL TUNNEL SY MPTOMS) Arthritis, Chronic Back Pain, Fractures Endocrine: No HEENT: No Cancer: Yes Skin Did You Recieve Any Treatments: Yes What Type of Treatment Did You: Surgical Intervention Psychosocial: Yes Sleep Difficulties, Anxiety, Suicide Attempts, Bipolar, Violent Behavior, Depression Integumentary: Yes Herpes Blood Disorders: No Adverse Reaction/Blood Tranf: Yes (PAIN IN ARM , FEVER) Family Medical History Cardiovascular disease 19 MOTHER FH: arrhythmia 19 MOTHER FH: skin cancer 19 MOTHER Parkinson's disease 19 FATHER Heart Disease, Other Conditions/Hx Physical Exam Vital Signs Capillary Refill : Height, Weight, BMI Height: 5'0" Weight: 220lbs. 0oz. 99.006523bj; 30.00 BMI Method:Stated General Appearance: WD/WN, no apparent distress Neck: non-tender, full range of motion Respiratory: no respiratory distress, no accessory muscle use Shoulder: normal inspection, non-tender Elbow/Forearm: normal inspection, non-tender Wrist: Yes normal inspection, Yes non-tender Hand: normal inspection, Right Neurologic/Psychiatric: alert, normal mood/affect, oriented x 3 Skin: normal color, warm/dry Positive TINELS sign Departure Impression Primary Impression: Carpal tunnel syndrome Disposition: 01 HOME, SELF-CARE Condition: Stable Departure-Patient Inst. Decision time for Depature: 13:05 Referrals: NO,LOCAL PHYSICIAN (PCP/Family) Primary Care Physician Patient Instructions: Carpal Tunnel Syndrome Add. Discharge Instructions: 1. Wear the wrist splint. You can take this off to shower but you should sleep with it on. Steroids as directed. Follow-up with one of the orthopedic surgeons by calling them today or tomorrow to make an appointment to be seen. Scripts Methylprednisolone (Methylprednisolone Dose Pack) 4 Mg Tab.ds.pk 4 MG PO UD for 6 Days, #21 PKG PER DOSE PACK INSTRUCTIONS Prov: GRANT HANSEN APRN 05/26/20 GRANT HANSEN APRN May 26, 2020 13:05
[2020-05-26 13:10] VITALS: BP 130/70
== END 2020-05-26 13:10 | disposition home or self-care (01) ==
LOC: EDUNIT# 12:50 → ER 12:52
DX: G56.01 Carpal tunnel syndrome, right upper limb (principal); J44.9 Chronic obstructive pulmonary disease, unspecified; F31.9 Bipolar disorder, unspecified; F41.9 Anxiety disorder, unspecified; K21.9 Gastro-esophageal reflux disease without esophagitis; G40.909 Epilepsy, unspecified, not intractable, without status epilepticus; Z77.22 Contact with and (suspected) exposure to environmental tobacco smoke (acute) (chronic); Z85.828 Personal history of other malignant neoplasm of skin; Z80.8 Family history of malignant neoplasm of other organs or systems; Z82.49 Family history of ischemic heart disease and other diseases of the circulatory system; Z79.52 Long term (current) use of systemic steroids
CPT/HCPCS: 99282

== ENCOUNTER 2020-10-15 00:56 | Emergency (ER) | payer MEDICAID, OTHER ==
[~2020-10-15] VITALS: Ht 152.4 cm; Wt 90.2 kg
[~2020-10-15 00:56] MED LIST changes: +METH4TAB10 PO
[2020-10-15 01:03] VITALS: BP 133/95
[2020-10-15] MEDS ORDERED: IBUPROFEN 600 MG (MOTRIN) TAB PO ONE (01:15)
--- NOTE | 2020-10-15 01:19 | ED Lower Extremity ---
General Chief Complaint: Lower Extremity Stated Complaint: RT KNEE PAIN Source: patient, police Exam Limitations: no limitations History of Present Illness Date Seen by Provider: Oct 15, 2020 Time Seen by Provider: 01:00 Initial Comments Patient is a 45-year-old female history of chronic knee pain who presents with worsening knee pain after walking today and then falling directly on top of her knee. Patient reports pain tenderness to the medial aspect of her knee. Pain is described as dull is rated mild to moderate is worse with palpation and range of motion. Patient arrives in police custody after being arrested on a outstanding warrant. Patient was not on her way to the ER at the time she was resting but did request medical evaluation. No other symptoms or complaints. Additional history by Juan Antonio Bruner. Severity: moderate Pain/Injury Location: right knee Method of Injury: other Modifying Factors: Improves With Other Allergies and Home Medications Allergies Coded Allergies: No Known Drug Allergies (Unverified , 09/07/08) Home Medications Albuterol Sulfate 1 Puff Puff, 2 PUFF IH Q4H PRN for SHORTNESS OF BREATH, (Reported) Amitriptyline HCl 50 Mg Tablet, 50 MG PO HS, (Reported) Aripiprazole 10 Mg Tablet, 10 MG PO DAILY, (Reported) Bacitracin 28.4 Gm Oint...g., 1 GM TP BID mix with nystatin cream and apply beneath left breast twice daily. Prescribed by: GRANT HANSEN on 04/29/182052 Celecoxib 100 Mg Capsule, 100 MG PO DAILY, (Reported) Cyclobenzaprine HCl 10 Mg Tablet, 10 MG PO Q8H Prescribed by: MENA CHIRINOS on 08/22/1852 Hydroxyzine HCl 25 Mg Tablet, 25 MG PO Q4H PRN for ANXIETY . Prescribed by: GRANT HANSEN on 06/26/19 1707 Methylprednisolone 4 Mg Tab.ds.pk, 4 MG PO UD PER DOSE PACK INSTRUCTIONS Prescribed by: GRANT HANSEN on 05/26/20 1305 Naproxen 500 Mg Tablet, 500 MG PO BID Prescribed by: MENA CHIRINOS on 08/22/1852 Nitrofurantoin Monohyd/M-Cryst 100 Mg Capsule, 100 MG PO BID Prescribed by: MENA CHIRINOS on 08/22/1852 Nystatin 15 Gm Cream..g., 1 GM TP TID Prescribed by: GRANT HANSEN on 04/29/182052 Pantoprazole Sodium 40 Mg Tablet.dr, 40 MG PO DAILY, (Reported) Prednisone 20 Mg Tab, 40 MG PO DAILY Prescribed by: GRANT HANSEN on 04/29/182052 Tiotropium [place] 1 Inh Aerp, 1 CAP IH DAILY, (Reported) Topiramate 50 Mg Tablet, 50 MG PO BID, (Reported) Patient Home Medication List Home Medication List Reviewed: Yes Review of Systems Constitutional: see HPI EENTM: see HPI Respiratory: see HPI Cardiovascular: see HPI Gastrointestinal: see HPI Genitourinary: see HPI Musculoskeletal: see HPI Skin: see HPI Psychiatric/Neurological: See HPI All Other Systems Reviewed Negative Unless Noted: Yes Past Fscxmci-Crcdcp-Iufhyf Hx Past Med/Social Hx: Reviewed Nursing Past Med/Soc Hx Patient Social History Alcohol Use: Occasionally Uses Drug of Choice: MARIJUANA Smoking Status: Current Everyday Smoker Type Used: Cigarettes 2nd Hand Smoke Exposure: Yes Recent Hopitalizations: No Immunizations Up To Date Tetanus Booster (TDap): Unknown PED Vaccines UTD: Yes Date of Influenza Vaccine: Jan 14, 2017 Seasonal Allergies Seasonal Allergies: Yes Past Medical History Surgeries: Yes Abdominal, Appendectomy, Section, Gallbladder, Tubal Ligation Respiratory: Yes Asthma, COPD Cardiac: No Syncope Neurological: Yes Headaches /Migraines, Seizure Disorder Female Reproductive Disorders: Menstrual Problems, Ovarian Cyst Sexually Transmitted Disease: Yes (HERPES) HIV/AIDS: No Genitourinary: Yes UTI-Chronic Gastrointestinal: Yes Gastroesophageal Reflux, Gall Bladder Disease, Irritable Bowel Musculoskeletal: Yes (CHRONIC NECK AND BACK PAIN; BILATERAL CARPAL TUNNEL SYMPTOMS) Arthritis, Chronic Back Pain, Fractures Endocrine: No HEENT: No Cancer: Yes Skin Did You Recieve Any Treatments: Yes What Type of Treatment Did You: Surgical Intervention Psychosocial: Yes Sleep Difficulties, Anxiety, Suicide Attempts, Bipolar, Violent Behavior, Depression Integumentary: Yes Herpes Blood Disorders: No Adverse Reaction/Blood Tranf: Yes (PAIN IN ARM , FEVER) Family Medical History Cardiovascular disease 19 MOTHER FH: arrhythmia 19 MOTHER FH: skin cancer 19 MOTHER Parkinson's disease 19 FATHER Heart Disease, Other Conditions/Hx Physical Exam Vital Signs Capillary Refill : Height, Weight, BMI Height: 5'0" Weight: 220lbs. 0oz. 99.845912ox; 37.00 BMI Method:Stated General Appearance: WD/WN, no apparent distress HEENT: PERRL/EOMI Knees: right knee pain, right knee soft tissue tenderness Neurologic/Psychiatric: enamel burner II-XII nml as tested, oriented x 3 Progress/Results/Core Measures Results/Orders My Orders Orders - SAIDA FERNANDEZ DO Knee 3 View Right (10/15/20 01:02) Departure Communication (Admissions) Right knee x-ray: No obvious displaced fracture. Chronic right knee pain with no significant abnormalities on physical exam or x- ray. Will defer further work-up to outpatient provider. Ibuprofen given. Pari ent medically stable for discharge. Impression Primary Impression: Right knee injury Additional Impression: Chronic pain of right knee Disposition: HOME, SELF-CARE Condition: Stable Departure-Patient Inst. Decision time for Depature: 01:18 Referrals: LOWELL TARIQ APRN (PCP/Family) Primary Care Physician Patient Instructions: Knee Pain, Contusion (DC) Add. Discharge Instructions: Your were evaluated in the emergency department for chronic right knee pain and fall today earlier on right knee. An x-ray was performed does not show evidence of fracture. Please apply ice take ibuprofen as needed. Follow-up with your outpatient provider for further evaluation as needed. All discharge instructions reviewed with patient and/or family. Voiced understanding. SAIDA FERNANDEZ DO Oct 15, 2020 01:19
--- NOTE | 2020-10-15 07:32 | Diagnostic Imaging Report ---
INDICATION: Knee pain with fall. FINDINGS: 3 views. Nonweightbearing images show joint space to be well preserved. Articulating surfaces are smooth. There are no fractures. No radiopaque foreign bodies. IMPRESSION: Normal right knee. Dictated by: Dictated on workstation # [id number]
== END 2020-10-15 01:26 | disposition home or self-care (01) ==
LOC: EDUNIT# 00:56 → ER FS 00:57
DX: S89.91XA Unspecified injury of right lower leg, initial encounter (principal); G89.29 Other chronic pain; J44.9 Chronic obstructive pulmonary disease, unspecified; F41.9 Anxiety disorder, unspecified; F31.9 Bipolar disorder, unspecified; K21.9 Gastro-esophageal reflux disease without esophagitis; F17.210 Nicotine dependence, cigarettes, uncomplicated; Z79.52 Long term (current) use of systemic steroids; Z79.899 Other long term (current) drug therapy; W19.XXXA Unspecified fall, initial encounter
CPT/HCPCS: 73562